=== PATIENT | male | born 1970 | race Caucasian/White ===

== ENCOUNTER 2017-10-22 20:03 | Emergency (ER) | payer MEDICARE, MEDICAID ==
[~2017-10-22] VITALS: Ht 177.8 cm; Wt 70.3 kg
[~2017-10-22 20:03] MED LIST: AMITRIPTYLINE H10 M3; BACTRIM DS TAB1 EACH PO; CARISOPRODOL 3350 MG PO; CHLORPROMAZINE100 MG PO; CHLORPROMAZINE50 M2; DEPAKOTE ER500 MG PO; DEPAKOTE500 MG; DEPAKOTE500 MG PO; FLEXERIL PO; HYDROCODONE-AP1 EAC6 PO; IBUPROFEN 600600 M1 PO; IBUPROFEN 800800 M1 PO; INVEGA3 MG PO; LIDODERM 5%1 PATC1 TRANSDERM; LORTAB 5 MG/5001 TA1; MEDROL DOSPAK21 TA1 PO; MOBIC15 MG PO; NAPROSYN375 MG PO; NAPROSYN500 MG PO; NORCO 10-325 T1 EACH; NORCO 10-325 T1 EACH PO; NORCO 5-325 TA1 EACH PO; NORTRIPTYLINE H10 M1; PAMELOR10 MG; PERCOCET 2.5-31 EACH; PREDNISONE; PROLIXIN; PROLIXIN PO; ROBAXIN 750 MG750 M1 PO; ROBAXIN500 MG PO; SEROQUEL200 MG; TRAZODONE HCL100 MG PO; ULTRAM 50MG TAB50 MG PO; VICODIN; VISTARIL50 MG PO; VOLTAREN GEL 1100 G2 TOP; ZYPREXA 10 MG T10 MG PO
[2017-10-22 20:05] VITALS: BP 127/82
== END 2017-10-22 21:42 | disposition home or self-care (01) ==
LOC: M.ERS 20:03
DX: S09.90XA Unspecified injury of head, initial encounter (principal); S19.9XXA Unspecified injury of neck, initial encounter; F17.210 Nicotine dependence, cigarettes, uncomplicated; F20.3 Undifferentiated schizophrenia; F30.9 Manic episode, unspecified; F20.9 Schizophrenia, unspecified; E78.00 Pure hypercholesterolemia, unspecified; Z88.5 Allergy status to narcotic agent; Z88.0 Allergy status to penicillin; Z88.8 Allergy status to other drugs, medicaments and biological substances; Y04.2XXA Assault by strike against or bumped into by another person, initial encounter; Y93.89 Activity, other specified; Y92.89 Other specified places as the place of occurrence of the external cause; Y99.8 Other external cause status

== ENCOUNTER 2017-10-30 08:16 | Emergency (ER) | payer MEDICARE, MEDICAID ==
[~2017-10-30] VITALS: Ht 182.9 cm; Wt 77.1 kg
[2017-10-30 08:24] VITALS: BP 130/67
== END 2017-10-30 08:45 | disposition home or self-care (01) ==
LOC: M.ERS 08:16
DX: R51 Headache (principal); G89.29 Other chronic pain; M54.9 Dorsalgia, unspecified; F20.9 Schizophrenia, unspecified; E78.00 Pure hypercholesterolemia, unspecified; M25.511 Pain in right shoulder; F17.210 Nicotine dependence, cigarettes, uncomplicated; Z88.5 Allergy status to narcotic agent; Z88.6 Allergy status to analgesic agent; Z88.0 Allergy status to penicillin; Z88.8 Allergy status to other drugs, medicaments and biological substances; Y04.0XXA Assault by unarmed brawl or fight, initial encounter; Y93.89 Activity, other specified; Y92.89 Other specified places as the place of occurrence of the external cause; Y99.8 Other external cause status

== ENCOUNTER 2017-11-13 18:28 | Emergency (ER) | payer MEDICARE, MEDICAID ==
[~2017-11-13] VITALS: Ht 177.8 cm; Wt 87.1 kg
[2017-11-13 19:13] VITALS: BP 118/76
== END 2017-11-13 19:14 | disposition home or self-care (01) ==
LOC: M.ERS 18:28
DX: G89.29 Other chronic pain (principal); M54.5 Low back pain; F20.9 Schizophrenia, unspecified; E78.00 Pure hypercholesterolemia, unspecified; M25.511 Pain in right shoulder; F17.210 Nicotine dependence, cigarettes, uncomplicated; Z88.5 Allergy status to narcotic agent; Z88.6 Allergy status to analgesic agent; Z88.0 Allergy status to penicillin; Z88.8 Allergy status to other drugs, medicaments and biological substances

== ENCOUNTER 2017-11-19 03:44 | Emergency (ER) | payer MEDICARE, MEDICAID ==
[~2017-11-19] VITALS: Ht 177.8 cm; Wt 83.0 kg
[2017-11-19] MEDS ORDERED: VISTARIL 25 MG25 M1 PO (03:54)
[2017-11-19 04:30] LABS: CREATININE 0.7 mg/dL (0.6-1.3); POTASSIUM 3.9 mmol/L (3.5-5.1)
[2017-11-19 04:34] LABS: ABSOLUTE BASOPHILS 0.1 thou/uL (0.0-0.2); ABSOLUTE EOSINOPHILS 0.1 thou/uL (0.0-0.7); ABSOLUTE LYMPHOCYTES 2.3 thou/uL (0.8-5.3); ABSOLUTE MONOCYTES 0.9 thou/uL (0.0-1.2); ABSOLUTE NEUTROPHILS 4.4 thou/uL (1.6-8.1); BASOPHILS 0.7 %; EOSINOPHILS 1.9 %; HEMATOCRIT 39.7 % (42.0-52.0); HEMOGLOBIN 13.6 gm/dL (14.0-18.0); MCH 32.1 pg (26.0-34.0); MCHC 34.2 g/dL (28.0-37.0); MCV 93.8 fL (80.0-100.0); MONOCYTES 11.2 %; MPV 7.7 fl. (7.2-11.1); NUCLEATED RBCS 0 /100WBC; PLATELET COUNT* 246 thou/uL (150-400); POLYS 56.2 %; RBC 4.23 mil/uL (4.50-6.00); RDW-CV 12.6 % (10.5-14.5); WBC 7.8 thou/uL (4.0-11.0)
[2017-11-19 04:35] LABS: ALBUMIN 3.5 g/dL (3.4-5.0); ALCOHOL < 10 mg/dL (<10); SALICYLATE 7.3 mg/dL (2.8-20.0); TOTAL BILIRUBIN 0.2 mg/dL (<0.1-1.0); TOTAL PROTEIN 6.8 g/dL (6.4-8.2)
[2017-11-19 04:39] LABS: ACETAMINOPHEN < 2 ug/mL (10-30)
[2017-11-19 06:30] LABS: URINE BILIRUBIN NEGATIVE (Negative); URINE BLOOD NEGATIVE (Negative); URINE CLARITY CLEAR; URINE COLOR YELLOW; URINE GLUCOSE-RANDOM NEGATIVE (Negative); URINE KETONES NEGATIVE (Negative); URINE LEUKOCYTES-REFLEX NEGATIVE (Negative); URINE NITRITE-REFLEX NEGATIVE (Negative); URINE PROTEIN NEGATIVE (Negative); URINE UROBILINOGEN 0.2 E.U./dl (0.2-1.0)
[2017-11-19 06:35] LABS: AMP/METHAMP Negative (Negative); BARBITURATES Negative (Negative); BENZODIAZEPINES Negative (Negative); COCAINE Negative (Negative); METHADONE Negative (Negative); OPIATES Negative (Negative); PCP Negative (Negative); THC POSITIVE (Negative)
[2017-11-19 10:55] VITALS: BP 101/56
== END 2017-11-19 11:05 | disposition home or self-care (01) ==
LOC: M.ERS 03:44
PROVIDERS: Emergency Medicine Emergency Medical Services
DX: F39 Unspecified mood [affective] disorder (principal); E78.00 Pure hypercholesterolemia, unspecified; F20.9 Schizophrenia, unspecified; F17.210 Nicotine dependence, cigarettes, uncomplicated; Z88.0 Allergy status to penicillin; Z88.5 Allergy status to narcotic agent; Z88.8 Allergy status to other drugs, medicaments and biological substances

== ENCOUNTER 2017-12-02 14:40 | Emergency (ER) | payer MEDICARE, MEDICAID ==
[~2017-12-02] VITALS: Ht 177.8 cm; Wt 69.4 kg
[~2017-12-02 14:40] MED LIST changes: +VISTARIL 25 MG25 M1 PO
[2017-12-02 15:20] VITALS: BP 119/77
== END 2017-12-02 15:38 | disposition home or self-care (01) ==
LOC: M.ERS 14:40
DX: G89.29 Other chronic pain (principal); F20.9 Schizophrenia, unspecified; F17.210 Nicotine dependence, cigarettes, uncomplicated; E78.00 Pure hypercholesterolemia, unspecified; Z88.5 Allergy status to narcotic agent; Z88.0 Allergy status to penicillin; Z88.8 Allergy status to other drugs, medicaments and biological substances

== ENCOUNTER 2017-12-07 15:17 | Emergency (ER) | payer MEDICARE, MEDICAID ==
[~2017-12-07] VITALS: Ht 177.8 cm; Wt 72.6 kg
[2017-12-07 15:23] VITALS: BP 125/80
[2017-12-07] MEDS ORDERED: MEDICINAL MARIJUANA (15:25)
[2017-12-07] MEDS ORDERED: NORCO 5-325 TA1 EACH PO (15:39)
== END 2017-12-07 15:56 | disposition home or self-care (01) ==
LOC: M.ERS 15:17
DX: S62.637A Displaced fracture of distal phalanx of left little finger, initial encounter for closed fracture (principal); G89.29 Other chronic pain; F20.9 Schizophrenia, unspecified; E78.00 Pure hypercholesterolemia, unspecified; M25.511 Pain in right shoulder; F17.210 Nicotine dependence, cigarettes, uncomplicated; Z88.5 Allergy status to narcotic agent; Z88.6 Allergy status to analgesic agent; Z88.0 Allergy status to penicillin; W23.0XXA Caught, crushed, jammed, or pinched between moving objects, initial encounter; Y93.89 Activity, other specified; Y92.89 Other specified places as the place of occurrence of the external cause; Y99.8 Other external cause status

== ENCOUNTER 2017-12-17 19:02 | Emergency (ER) | payer MEDICARE, MEDICAID ==
[~2017-12-17] VITALS: Ht 177.8 cm; Wt 69.4 kg
[~2017-12-17 19:02] MED LIST changes: +MEDICINAL MARIJUANA
[2017-12-17 20:29] VITALS: BP 113/76
== END 2017-12-17 20:41 | disposition home or self-care (01) ==
LOC: M.ERS 19:02
DX: S62.607D Fracture of unspecified phalanx of left little finger, subsequent encounter for fracture with routine healing (principal); S60.052A Contusion of left little finger without damage to nail, initial encounter; F17.210 Nicotine dependence, cigarettes, uncomplicated; G89.29 Other chronic pain; F12.11 Cannabis abuse, in remission; M54.9 Dorsalgia, unspecified; M51.36 Other intervertebral disc degeneration, lumbar region; F20.9 Schizophrenia, unspecified; F10.21 Alcohol dependence, in remission; E78.00 Pure hypercholesterolemia, unspecified; Z88.5 Allergy status to narcotic agent; Z88.0 Allergy status to penicillin; Z88.8 Allergy status to other drugs, medicaments and biological substances; W18.39XD Other fall on same level, subsequent encounter

== ENCOUNTER 2017-12-23 22:35 | Emergency (ER) | payer MEDICARE, MEDICAID ==
[~2017-12-23] VITALS: Ht 177.8 cm; Wt 69.4 kg
[2017-12-23 23:05] VITALS: BP 114/76
== END 2017-12-23 23:05 | disposition home or self-care (01) ==
LOC: M.ERS 22:35
DX: G89.29 Other chronic pain (principal); M25.551 Pain in right hip; F20.9 Schizophrenia, unspecified; F17.210 Nicotine dependence, cigarettes, uncomplicated; E78.00 Pure hypercholesterolemia, unspecified; Z88.5 Allergy status to narcotic agent; Z88.0 Allergy status to penicillin; Z88.8 Allergy status to other drugs, medicaments and biological substances

== ENCOUNTER 2017-12-27 18:13 | Emergency (ER) | payer MEDICARE, MEDICAID ==
[~2017-12-27] VITALS: Ht 182.9 cm; Wt 70.3 kg
[2017-12-27 18:18] VITALS: BP 148/91
== END 2017-12-27 18:29 | disposition home or self-care (01) ==
LOC: M.ERS 18:13
DX: G89.29 Other chronic pain (principal); M54.9 Dorsalgia, unspecified; M25.559 Pain in unspecified hip

== ENCOUNTER 2017-12-31 18:03 | Emergency (ER) | payer MEDICARE, MEDICAID ==
[~2017-12-31] VITALS: Ht 177.8 cm; Wt 69.4 kg
[2017-12-31 18:04] VITALS: BP 113/66
== END 2017-12-31 18:39 | disposition home or self-care (01) ==
LOC: M.ERS 18:03
DX: G89.29 Other chronic pain (principal); M25.551 Pain in right hip; M54.9 Dorsalgia, unspecified; M19.90 Unspecified osteoarthritis, unspecified site; F20.9 Schizophrenia, unspecified; E78.00 Pure hypercholesterolemia, unspecified; M25.511 Pain in right shoulder; F17.210 Nicotine dependence, cigarettes, uncomplicated; Z88.5 Allergy status to narcotic agent; Z88.6 Allergy status to analgesic agent; Z88.0 Allergy status to penicillin

== ENCOUNTER 2018-01-01 15:31 | Emergency (ER) | payer MEDICARE, MEDICAID ==
[~2018-01-01] VITALS: Ht 177.8 cm; Wt 69.4 kg
[2018-01-01 15:48] VITALS: BP 114/73
== END 2018-01-01 15:48 | disposition home or self-care (01) ==
LOC: M.ERS 15:31
DX: G89.29 Other chronic pain (principal); M54.9 Dorsalgia, unspecified; E78.00 Pure hypercholesterolemia, unspecified; M25.511 Pain in right shoulder; F17.210 Nicotine dependence, cigarettes, uncomplicated; Z88.6 Allergy status to analgesic agent; Z88.5 Allergy status to narcotic agent; Z88.0 Allergy status to penicillin

== ENCOUNTER 2018-01-07 16:29 | Emergency (ER) | payer MEDICARE, MEDICAID ==
[~2018-01-07] VITALS: Ht 177.8 cm; Wt 69.4 kg
[2018-01-07] MEDS ORDERED: HYDROCODONE-AP1 EAC6 PO (16:37)
[2018-01-07 17:26] VITALS: BP 123/61
== END 2018-01-07 17:27 | disposition home or self-care (01) ==
LOC: M.ERS 16:29
DX: G89.29 Other chronic pain (principal); M54.9 Dorsalgia, unspecified; M19.90 Unspecified osteoarthritis, unspecified site; F20.9 Schizophrenia, unspecified; E78.00 Pure hypercholesterolemia, unspecified; M25.511 Pain in right shoulder; F17.210 Nicotine dependence, cigarettes, uncomplicated; Z88.5 Allergy status to narcotic agent; Z88.6 Allergy status to analgesic agent; Z88.0 Allergy status to penicillin

== ENCOUNTER 2018-01-09 21:23 | Emergency (ER) | payer MEDICARE, MEDICAID ==
[~2018-01-09] VITALS: Ht 177.8 cm; Wt 69.4 kg
[2018-01-09 21:59] VITALS: BP 122/85
== END 2018-01-09 21:54 | disposition home or self-care (01) ==
LOC: M.ERS 21:23
DX: G89.29 Other chronic pain (principal); R51 Headache

== ENCOUNTER 2018-01-16 14:04 | Emergency (ER) | payer MEDICARE, MEDICAID ==
[~2018-01-16] VITALS: Ht 177.8 cm; Wt 83.0 kg
[2018-01-16 14:35] VITALS: BP 115/69
== END 2018-01-16 14:47 | disposition home or self-care (01) ==
LOC: M.ERS 14:04
DX: G89.29 Other chronic pain (principal); R51 Headache; E78.00 Pure hypercholesterolemia, unspecified; M25.511 Pain in right shoulder; Z88.5 Allergy status to narcotic agent; Z88.6 Allergy status to analgesic agent; Z88.0 Allergy status to penicillin; Z88.8 Allergy status to other drugs, medicaments and biological substances; Z87.891 Personal history of nicotine dependence

== ENCOUNTER 2018-01-27 18:33 | Emergency (ER) | payer MEDICARE, MEDICAID ==
[~2018-01-27] VITALS: Ht 177.8 cm; Wt 69.4 kg
[2018-01-27 18:35] VITALS: BP 129/87
== END 2018-01-27 19:04 | disposition home or self-care (01) ==
LOC: M.ERS 18:33
DX: G89.29 Other chronic pain (principal); M25.561 Pain in right knee; E78.00 Pure hypercholesterolemia, unspecified; F20.9 Schizophrenia, unspecified; F17.210 Nicotine dependence, cigarettes, uncomplicated; Z88.5 Allergy status to narcotic agent; Z88.0 Allergy status to penicillin; Z88.8 Allergy status to other drugs, medicaments and biological substances

== ENCOUNTER 2018-01-31 15:15 | Emergency (ER) | payer MEDICARE, MEDICAID ==
[~2018-01-31] VITALS: Ht 177.8 cm; Wt 69.8 kg
[2018-01-31 15:36] VITALS: BP 127/83
== END 2018-01-31 15:37 | disposition home or self-care (01) ==
LOC: M.ERS 15:15
DX: G89.29 Other chronic pain (principal); R51 Headache; M54.9 Dorsalgia, unspecified; M25.511 Pain in right shoulder; E78.00 Pure hypercholesterolemia, unspecified; F17.210 Nicotine dependence, cigarettes, uncomplicated; F20.9 Schizophrenia, unspecified; Z88.5 Allergy status to narcotic agent; Z88.1 Allergy status to other antibiotic agents; Z88.0 Allergy status to penicillin; Z88.8 Allergy status to other drugs, medicaments and biological substances

== ENCOUNTER 2018-02-07 10:08 | Emergency (ER) | payer MEDICARE, MEDICAID ==
[~2018-02-07] VITALS: Ht 177.8 cm; Wt 69.8 kg
[2018-02-07 11:49] VITALS: BP 132/99
== END 2018-02-07 11:51 | disposition home or self-care (01) ==
LOC: M.ERS 10:08
DX: G89.29 Other chronic pain (principal); M25.561 Pain in right knee; M54.9 Dorsalgia, unspecified; M25.519 Pain in unspecified shoulder; E78.00 Pure hypercholesterolemia, unspecified; Z88.5 Allergy status to narcotic agent; Z88.0 Allergy status to penicillin; Z88.8 Allergy status to other drugs, medicaments and biological substances; F17.210 Nicotine dependence, cigarettes, uncomplicated

== ENCOUNTER 2018-02-10 14:42 | Emergency (ER) | payer MEDICARE, MEDICAID ==
[~2018-02-10] VITALS: Ht 177.8 cm; Wt 70.3 kg
[2018-02-10 15:05] VITALS: BP 122/67
== END 2018-02-10 15:05 | disposition home or self-care (01) ==
LOC: M.ERS 14:42
DX: G89.29 Other chronic pain (principal); M25.511 Pain in right shoulder; M54.9 Dorsalgia, unspecified; E78.00 Pure hypercholesterolemia, unspecified; F20.9 Schizophrenia, unspecified; F17.210 Nicotine dependence, cigarettes, uncomplicated; Z88.5 Allergy status to narcotic agent; Z88.0 Allergy status to penicillin; Z88.8 Allergy status to other drugs, medicaments and biological substances

== ENCOUNTER 2018-02-11 18:43 | Emergency (ER) | payer MEDICARE, MEDICAID ==
[~2018-02-11] VITALS: Ht 182.9 cm; Wt 79.4 kg
[2018-02-11 19:10] VITALS: BP 119/71
== END 2018-02-11 19:12 | disposition home or self-care (01) ==
LOC: M.ERS 18:43
DX: G89.29 Other chronic pain (principal); M25.521 Pain in right elbow; M54.9 Dorsalgia, unspecified; E78.00 Pure hypercholesterolemia, unspecified; F17.210 Nicotine dependence, cigarettes, uncomplicated; Z88.5 Allergy status to narcotic agent; Z88.6 Allergy status to analgesic agent; Z88.0 Allergy status to penicillin; Z88.8 Allergy status to other drugs, medicaments and biological substances

== ENCOUNTER 2018-02-14 20:06 | Emergency (ER) | payer MEDICARE, MEDICAID ==
[~2018-02-14] VITALS: Ht 180.3 cm; Wt 83.9 kg
[2018-02-14] MEDS ORDERED: LIDODERM1 EACH TRANSDERM (20:18)
[2018-02-14 20:25] VITALS: BP 145/68
== END 2018-02-14 20:27 | disposition home or self-care (01) ==
LOC: M.ERS 20:06
DX: G89.29 Other chronic pain (principal); M54.2 Cervicalgia; M54.9 Dorsalgia, unspecified; M79.604 Pain in right leg; F20.9 Schizophrenia, unspecified; M19.90 Unspecified osteoarthritis, unspecified site; E78.00 Pure hypercholesterolemia, unspecified; M25.511 Pain in right shoulder; F17.210 Nicotine dependence, cigarettes, uncomplicated; Z88.5 Allergy status to narcotic agent; Z88.6 Allergy status to analgesic agent; Z88.0 Allergy status to penicillin; Z88.8 Allergy status to other drugs, medicaments and biological substances

== ENCOUNTER 2018-02-17 20:30 | Emergency (ER) | payer MEDICARE, MEDICAID ==
[~2018-02-17] VITALS: Ht 177.8 cm; Wt 73.5 kg
[~2018-02-17 20:30] MED LIST changes: +LIDODERM1 EACH TRANSDERM
[2018-02-17 21:24] VITALS: BP 104/63
== END 2018-02-17 21:27 | disposition home or self-care (01) ==
LOC: M.ERS 20:30
DX: G89.29 Other chronic pain (principal); M25.561 Pain in right knee; M26.609 Unspecified temporomandibular joint disorder, unspecified side; M25.511 Pain in right shoulder; M54.9 Dorsalgia, unspecified; E78.00 Pure hypercholesterolemia, unspecified; F20.9 Schizophrenia, unspecified; F17.210 Nicotine dependence, cigarettes, uncomplicated; Z88.5 Allergy status to narcotic agent; Z88.0 Allergy status to penicillin; Z88.6 Allergy status to analgesic agent; Z88.8 Allergy status to other drugs, medicaments and biological substances

== ENCOUNTER 2018-02-19 14:22 | Emergency (ER) | payer MEDICARE, MEDICAID ==
[~2018-02-19] VITALS: Ht 177.8 cm; Wt 69.8 kg
[2018-02-19 14:24] VITALS: BP 122/68
== END 2018-02-19 14:43 | disposition home or self-care (01) ==
LOC: M.ERS 14:22
DX: G89.29 Other chronic pain (principal); M25.561 Pain in right knee; M25.511 Pain in right shoulder; M54.9 Dorsalgia, unspecified; E78.00 Pure hypercholesterolemia, unspecified; F20.9 Schizophrenia, unspecified; F17.210 Nicotine dependence, cigarettes, uncomplicated; Z88.5 Allergy status to narcotic agent; Z88.0 Allergy status to penicillin; Z88.6 Allergy status to analgesic agent; Z88.8 Allergy status to other drugs, medicaments and biological substances

== ENCOUNTER 2018-02-21 18:12 | Emergency (ER) | payer MEDICARE, MEDICAID ==
[~2018-02-21] VITALS: Ht 177.8 cm; Wt 74.8 kg
[2018-02-21 18:42] VITALS: BP 126/84
[2018-02-21] MEDS ORDERED: AFLEXERYL-LC 41 EACH TOP (18:48)
[2018-02-21] MEDS ORDERED: LIDODERM1 EACH TOP (18:49)
== END 2018-02-21 18:48 | disposition home or self-care (01) ==
LOC: M.ERS 18:12
DX: G89.29 Other chronic pain (principal); M54.9 Dorsalgia, unspecified; M19.90 Unspecified osteoarthritis, unspecified site; F20.9 Schizophrenia, unspecified; E78.00 Pure hypercholesterolemia, unspecified; M25.511 Pain in right shoulder; F17.210 Nicotine dependence, cigarettes, uncomplicated; Z88.5 Allergy status to narcotic agent; Z88.6 Allergy status to analgesic agent; Z88.0 Allergy status to penicillin; Z88.8 Allergy status to other drugs, medicaments and biological substances

== ENCOUNTER 2018-03-15 19:45 | Emergency (ER) | payer MEDICARE, MEDICAID ==
[~2018-03-15] VITALS: Ht 177.8 cm; Wt 70.3 kg
[~2018-03-15 19:45] MED LIST changes: +AFLEXERYL-LC 41 EACH TOP; +LIDODERM1 EACH TOP
[2018-03-15] MEDS ORDERED: NORCO 10-325 T1 EACH (19:52)
[2018-03-15 21:47] VITALS: BP 104/64
== END 2018-03-15 21:48 | disposition home or self-care (01) ==
LOC: M.ERS 19:45
DX: M54.2 Cervicalgia (principal); M54.9 Dorsalgia, unspecified; G89.29 Other chronic pain; F20.9 Schizophrenia, unspecified; E78.00 Pure hypercholesterolemia, unspecified; M25.511 Pain in right shoulder; F17.210 Nicotine dependence, cigarettes, uncomplicated; Z88.5 Allergy status to narcotic agent; Z88.6 Allergy status to analgesic agent; Z88.0 Allergy status to penicillin; Z88.8 Allergy status to other drugs, medicaments and biological substances

== ENCOUNTER 2018-03-22 17:36 | Emergency (ER) | payer MEDICARE, MEDICAID ==
[~2018-03-22] VITALS: Ht 177.8 cm; Wt 71.2 kg
[2018-03-22 17:37] VITALS: BP 117/75
[2018-03-22] MEDS ORDERED: NORCO 10-325 T1 EACH PO (17:41)
== END 2018-03-22 17:59 | disposition home or self-care (01) ==
LOC: M.ERS 17:36
DX: G89.29 Other chronic pain (principal); M25.511 Pain in right shoulder; M54.6 Pain in thoracic spine; E78.00 Pure hypercholesterolemia, unspecified; F20.9 Schizophrenia, unspecified; Z88.5 Allergy status to narcotic agent; Z88.6 Allergy status to analgesic agent; Z88.0 Allergy status to penicillin; Z88.8 Allergy status to other drugs, medicaments and biological substances; F17.210 Nicotine dependence, cigarettes, uncomplicated

== ENCOUNTER 2018-04-11 16:57 | Emergency (ER) | payer MEDICARE, MEDICAID ==
[~2018-04-11] VITALS: Ht 177.8 cm; Wt 69.8 kg
[2018-04-11 17:04] VITALS: BP 131/83
[2018-04-11] MEDS ORDERED: PATANOL5 ML OPHTHALMIC (17:22)
== END 2018-04-11 17:29 | disposition home or self-care (01) ==
LOC: M.ERS 16:57
DX: H10.11 Acute atopic conjunctivitis, right eye (principal); G89.29 Other chronic pain; M54.9 Dorsalgia, unspecified; M19.90 Unspecified osteoarthritis, unspecified site; F20.9 Schizophrenia, unspecified; E78.00 Pure hypercholesterolemia, unspecified; M25.511 Pain in right shoulder; F17.210 Nicotine dependence, cigarettes, uncomplicated; Z88.5 Allergy status to narcotic agent; Z88.6 Allergy status to analgesic agent; Z88.0 Allergy status to penicillin; Z88.8 Allergy status to other drugs, medicaments and biological substances

== ENCOUNTER 2018-04-17 21:24 | Emergency (ER) | payer MEDICARE, MEDICAID ==
[~2018-04-17] VITALS: Ht 182.9 cm; Wt 73.0 kg
[~2018-04-17 21:24] MED LIST changes: +PATANOL5 ML OPHTHALMIC
[2018-04-17] MEDS ORDERED: ZANAFLEX4 MG PO (21:35)
[2018-04-17] MEDS ORDERED: MEDROLDOSEPACK PO (21:35)
[2018-04-17 21:46] VITALS: BP 137/74
== END 2018-04-17 21:47 | disposition home or self-care (01) ==
LOC: M.ERS 21:24
DX: G89.29 Other chronic pain (principal); M54.9 Dorsalgia, unspecified; M25.511 Pain in right shoulder; E78.00 Pure hypercholesterolemia, unspecified; F17.210 Nicotine dependence, cigarettes, uncomplicated; Z88.0 Allergy status to penicillin; Z88.6 Allergy status to analgesic agent; Z88.8 Allergy status to other drugs, medicaments and biological substances; Z88.5 Allergy status to narcotic agent

== ENCOUNTER 2018-04-30 19:15 | Emergency (ER) | payer MEDICARE, MEDICAID ==
[~2018-04-30] VITALS: Ht 182.9 cm; Wt 69.8 kg
[~2018-04-30 19:15] MED LIST changes: +MEDROLDOSEPACK PO; +ZANAFLEX4 MG PO
[2018-04-30 20:19] VITALS: BP 129/66
== END 2018-04-30 20:20 | disposition home or self-care (01) ==
LOC: M.ERS 19:15
DX: G89.29 Other chronic pain (principal); M54.2 Cervicalgia; M54.9 Dorsalgia, unspecified; M25.511 Pain in right shoulder; F20.9 Schizophrenia, unspecified; E78.00 Pure hypercholesterolemia, unspecified; F17.210 Nicotine dependence, cigarettes, uncomplicated; Z88.5 Allergy status to narcotic agent; Z88.6 Allergy status to analgesic agent; Z88.0 Allergy status to penicillin; Z88.8 Allergy status to other drugs, medicaments and biological substances

== ENCOUNTER 2018-05-18 14:17 | Emergency (ER) | payer MEDICARE, MEDICAID ==
[~2018-05-18] VITALS: Ht 182.9 cm; Wt 68.0 kg
[2018-05-18 14:28] VITALS: BP 105/77
[2018-05-18] MEDS ORDERED: VISTARIL50 MG PO (14:30)
[2018-05-18] MEDS ORDERED: ZYPREXA10 MG PO (14:30)
[2018-05-18] MEDS ORDERED: NORCO 10-325 T1 EACH PO (14:31)
== END 2018-05-18 14:39 | disposition home or self-care (01) ==
LOC: M.ERS 14:17
DX: Z53.21 Procedure and treatment not carried out due to patient leaving prior to being seen by health care provider (principal)

== ENCOUNTER 2018-05-24 23:06 | Emergency (ER) | payer MEDICARE, MEDICAID ==
[~2018-05-24] VITALS: Ht 188 cm; Wt 81.7 kg
[~2018-05-24 23:06] MED LIST changes: +ZYPREXA10 MG PO
[2018-05-24 23:41] LABS: AMP/METHAMP Negative (Negative); BARBITURATES Negative (Negative); BENZODIAZEPINES Negative (Negative); COCAINE Negative (Negative); METHADONE Negative (Negative); OPIATES Negative (Negative); PCP Negative (Negative); THC POSITIVE (Negative)
[2018-05-25 00:20] VITALS: BP 122/78
== END 2018-05-25 00:20 | disposition home or self-care (01) ==
LOC: M.ERS 23:06
PROVIDERS: Emergency Medicine
DX: G89.29 Other chronic pain (principal); R51 Headache; M25.511 Pain in right shoulder; M54.9 Dorsalgia, unspecified; E78.00 Pure hypercholesterolemia, unspecified; F20.9 Schizophrenia, unspecified; F12.90 Cannabis use, unspecified, uncomplicated; F17.210 Nicotine dependence, cigarettes, uncomplicated; Z88.5 Allergy status to narcotic agent; Z88.6 Allergy status to analgesic agent; Z88.0 Allergy status to penicillin; Z88.8 Allergy status to other drugs, medicaments and biological substances

== ENCOUNTER 2018-05-26 17:39 | Emergency (ER) | payer MEDICARE, MEDICAID ==
[~2018-05-26] VITALS: Ht 177.8 cm; Wt 69.8 kg
[2018-05-26 18:05] VITALS: BP 114/81
== END 2018-05-26 18:06 | disposition home or self-care (01) ==
LOC: M.ERS 17:39
DX: G89.29 Other chronic pain (principal); M25.551 Pain in right hip; M54.9 Dorsalgia, unspecified; F20.9 Schizophrenia, unspecified; E78.00 Pure hypercholesterolemia, unspecified; M25.511 Pain in right shoulder; F17.210 Nicotine dependence, cigarettes, uncomplicated; Z88.5 Allergy status to narcotic agent; Z88.6 Allergy status to analgesic agent; Z88.0 Allergy status to penicillin; Z88.8 Allergy status to other drugs, medicaments and biological substances

== ENCOUNTER 2018-05-27 13:16 | Emergency (ER) | payer MEDICARE, MEDICAID ==
[~2018-05-27] VITALS: Ht 177.8 cm; Wt 69.8 kg
[2018-05-27 13:18] VITALS: BP 118/73
== END 2018-05-27 13:39 | disposition home or self-care (01) ==
LOC: M.ERS 13:16
DX: G89.29 Other chronic pain (principal); M25.551 Pain in right hip; M25.511 Pain in right shoulder; M54.9 Dorsalgia, unspecified; E78.00 Pure hypercholesterolemia, unspecified; F20.9 Schizophrenia, unspecified; F17.210 Nicotine dependence, cigarettes, uncomplicated; Z88.5 Allergy status to narcotic agent; Z88.0 Allergy status to penicillin; Z88.6 Allergy status to analgesic agent; Z88.8 Allergy status to other drugs, medicaments and biological substances

== ENCOUNTER 2018-05-28 23:50 | Emergency (ER) | payer MEDICARE, MEDICAID ==
[~2018-05-28] VITALS: Ht 177.8 cm; Wt 74.8 kg
[2018-05-29 00:30] LABS: HEMATOCRIT 42.2 % (42.0-52.0); HEMOGLOBIN 14.8 gm/dL (14.0-18.0); MCH 32.2 pg (26.0-34.0); MCV 92.1 fL (80.0-100.0); MPV 7.5 fl. (7.2-11.1); RBC 4.58 mil/uL (4.50-6.00); RDW-CV 13.4 % (10.5-14.5); WBC 9.3 thou/uL (4.0-11.0)
[2018-05-29 00:36] LABS: CALCIUM 9.8 mg/dL (8.5-10.1); CREATININE 0.8 mg/dL (0.6-1.3); POTASSIUM 3.5 mmol/L (3.5-5.1)
[2018-05-29 00:44] LABS: URINE BILIRUBIN NEGATIVE (Negative); URINE BLOOD NEGATIVE (Negative); URINE CLARITY CLEAR; URINE COLOR YELLOW; URINE GLUCOSE-RANDOM NEGATIVE (Negative); URINE KETONES NEGATIVE (Negative); URINE LEUKOCYTES-REFLEX NEGATIVE (Negative); URINE NITRITE-REFLEX NEGATIVE (Negative); URINE PROTEIN NEGATIVE (Negative); URINE SPECIFIC GRAVITY <= 1.005 (1.005-1.030); URINE UROBILINOGEN 0.2 E.U./dl (0.2-1.0)
[2018-05-29 00:52] LABS: AMP/METHAMP Negative (Negative); BARBITURATES Negative (Negative); BENZODIAZEPINES Negative (Negative); COCAINE Negative (Negative); METHADONE Negative (Negative); OPIATES Negative (Negative); PCP Negative (Negative); THC POSITIVE (Negative)
[2018-05-29 01:15] VITALS: BP 138/78
== END 2018-05-29 01:16 | disposition home or self-care (01) ==
LOC: M.ERS 23:50
PROVIDERS: Emergency Medicine Emergency Medical Services
DX: G89.29 Other chronic pain (principal); M54.2 Cervicalgia; M62.838 Other muscle spasm; M54.9 Dorsalgia, unspecified; M25.511 Pain in right shoulder; E78.00 Pure hypercholesterolemia, unspecified; F20.9 Schizophrenia, unspecified; F17.210 Nicotine dependence, cigarettes, uncomplicated; Z88.6 Allergy status to analgesic agent; Z88.8 Allergy status to other drugs, medicaments and biological substances; Z88.5 Allergy status to narcotic agent; Z88.0 Allergy status to penicillin

== ENCOUNTER 2018-05-30 14:01 | Emergency (ER) | payer MEDICARE, MEDICAID ==
[~2018-05-30] VITALS: Ht 182.9 cm; Wt 68.0 kg
[2018-05-30 15:12] VITALS: BP 113/87
== END 2018-05-30 15:14 | disposition home or self-care (01) ==
LOC: M.ERS 14:01
DX: G89.29 Other chronic pain (principal); R07.81 Pleurodynia; M79.642 Pain in left hand; M54.9 Dorsalgia, unspecified; E78.00 Pure hypercholesterolemia, unspecified; M25.511 Pain in right shoulder; F20.9 Schizophrenia, unspecified; F17.210 Nicotine dependence, cigarettes, uncomplicated; Z88.5 Allergy status to narcotic agent; Z88.6 Allergy status to analgesic agent; Z88.0 Allergy status to penicillin; Z88.8 Allergy status to other drugs, medicaments and biological substances

== ENCOUNTER 2018-06-10 02:39 | Emergency (ER) | payer MEDICARE, MEDICAID ==
[~2018-06-10] VITALS: Ht 177.8 cm; Wt 69.8 kg
[2018-06-10] MEDS ORDERED: LIORESAL 10 MG10 MG (02:45)
[2018-06-10 03:45] VITALS: BP 107/72
== END 2018-06-10 03:45 | disposition home or self-care (01) ==
LOC: M.ERS 02:39
DX: G89.29 Other chronic pain (principal); M25.542 Pain in joints of left hand; R07.81 Pleurodynia; M54.9 Dorsalgia, unspecified; E78.00 Pure hypercholesterolemia, unspecified; M25.511 Pain in right shoulder; F20.9 Schizophrenia, unspecified; F17.210 Nicotine dependence, cigarettes, uncomplicated; Z88.5 Allergy status to narcotic agent; Z88.6 Allergy status to analgesic agent; Z88.0 Allergy status to penicillin; Z88.8 Allergy status to other drugs, medicaments and biological substances

== ENCOUNTER 2018-06-12 21:34 | Emergency (ER) | payer MEDICARE, MEDICAID ==
[~2018-06-12] VITALS: Ht 177.8 cm; Wt 69.8 kg
[~2018-06-12 21:34] MED LIST changes: +LIORESAL 10 MG10 MG
[2018-06-12 23:22] VITALS: BP 122/77
== END 2018-06-12 23:29 | disposition home or self-care (01) ==
LOC: M.ERS 21:34
DX: G89.29 Other chronic pain (principal); M54.2 Cervicalgia; R51 Headache; M79.1 Myalgia; F20.9 Schizophrenia, unspecified; E78.00 Pure hypercholesterolemia, unspecified; M25.511 Pain in right shoulder; F17.210 Nicotine dependence, cigarettes, uncomplicated; Z88.5 Allergy status to narcotic agent; Z88.6 Allergy status to analgesic agent; Z88.0 Allergy status to penicillin; Z88.8 Allergy status to other drugs, medicaments and biological substances

== ENCOUNTER 2018-06-15 18:30 | Emergency (ER) | payer MEDICARE, MEDICAID ==
[~2018-06-15] VITALS: Ht 177.8 cm; Wt 60.8 kg
[2018-06-15 19:13] LABS: ABSOLUTE BASOPHILS 0.1 thou/uL (0.0-0.2); ABSOLUTE LYMPHOCYTES 1.6 thou/uL (0.8-5.3); ABSOLUTE MONOCYTES 0.7 thou/uL (0.0-1.2); ABSOLUTE NEUTROPHILS 3.9 thou/uL (1.6-8.1); EOSINOPHILS 0.8 %; HEMATOCRIT 41.4 % (42.0-52.0); HEMOGLOBIN 14.2 gm/dL (14.0-18.0); LYMPHOCYTES 25.5 %; MCH 31.5 pg (26.0-34.0); MCHC 34.2 g/dL (28.0-37.0); MCV 91.9 fL (80.0-100.0); MONOCYTES 10.6 %; MPV 7.3 fl. (7.2-11.1); NUCLEATED RBCS 0 /100WBC; PLATELET COUNT* 253 thou/uL (150-400); POLYS 62.1 %; RBC 4.51 mil/uL (4.50-6.00); WBC 6.2 thou/uL (4.0-11.0)
[2018-06-15 19:18] LABS: CALCIUM 8.6 mg/dL (8.5-10.1); CREATININE 0.9 mg/dL (0.6-1.3); POTASSIUM 3.6 mmol/L (3.5-5.1)
[2018-06-15 19:23] LABS: ALBUMIN 3.4 g/dL (3.4-5.0); TOTAL BILIRUBIN 0.2 mg/dL (<0.1-1.0); TOTAL PROTEIN 7.3 g/dL (6.4-8.2)
[2018-06-15 19:30] LABS: ALCOHOL < 10 mg/dL (<10); SALICYLATE 5.7 mg/dL (2.8-20.0)
[2018-06-15 19:31] LABS: ACETAMINOPHEN < 2 ug/mL (10-30)
[2018-06-15 22:08] VITALS: BP 117/66
== END 2018-06-15 22:10 | disposition home or self-care (01) ==
LOC: M.ERS 18:30
PROVIDERS: Emergency Medicine Emergency Medical Services
DX: F29 Unspecified psychosis not due to a substance or known physiological condition (principal); F32.9 Major depressive disorder, single episode, unspecified; R45.851 Suicidal ideations; E78.00 Pure hypercholesterolemia, unspecified; F20.9 Schizophrenia, unspecified; G89.29 Other chronic pain; M25.511 Pain in right shoulder; F17.210 Nicotine dependence, cigarettes, uncomplicated; Z88.8 Allergy status to other drugs, medicaments and biological substances; Z88.5 Allergy status to narcotic agent; Z88.6 Allergy status to analgesic agent; Z88.0 Allergy status to penicillin

== ENCOUNTER 2018-06-29 15:18 | Emergency (ER) | payer MEDICARE, MEDICAID ==
[~2018-06-29] VITALS: Ht 172.7 cm; Wt 68.0 kg
[2018-06-29 16:11] VITALS: BP 134/77
== END 2018-06-29 16:11 | disposition home or self-care (01) ==
LOC: M.ERS 15:18
DX: M25.511 Pain in right shoulder (principal); G89.29 Other chronic pain; M54.9 Dorsalgia, unspecified; E78.00 Pure hypercholesterolemia, unspecified; F20.9 Schizophrenia, unspecified; F17.210 Nicotine dependence, cigarettes, uncomplicated; Z88.5 Allergy status to narcotic agent; Z88.6 Allergy status to analgesic agent; Z88.0 Allergy status to penicillin; Z88.8 Allergy status to other drugs, medicaments and biological substances

== ENCOUNTER 2018-09-12 16:38 | Emergency (ER) | payer MEDICARE, MEDICAID ==
[~2018-09-12] VITALS: Ht 177.8 cm; Wt 70.8 kg
[2018-09-12 16:46] VITALS: BP 125/80
[2018-09-12] MEDS ORDERED: CLONAZEPAM 0.50.5 M1 PO (16:52)
== END 2018-09-12 17:08 | disposition home or self-care (01) ==
LOC: M.ERS 16:38
DX: G89.29 Other chronic pain (principal); R68.82 Decreased libido; M54.9 Dorsalgia, unspecified; F20.9 Schizophrenia, unspecified; E78.00 Pure hypercholesterolemia, unspecified; M25.511 Pain in right shoulder; F17.210 Nicotine dependence, cigarettes, uncomplicated; Z88.0 Allergy status to penicillin; Z88.6 Allergy status to analgesic agent; Z88.5 Allergy status to narcotic agent; Z88.8 Allergy status to other drugs, medicaments and biological substances

== ENCOUNTER 2018-09-15 17:00 | Emergency (ER) | payer MEDICARE, MEDICAID ==
[~2018-09-15] VITALS: Ht 177.8 cm; Wt 70.3 kg
[~2018-09-15 17:00] MED LIST changes: +CLONAZEPAM 0.50.5 M1 PO
[2018-09-15 18:00] VITALS: BP 120/40
== END 2018-09-15 18:00 | disposition home or self-care (01) ==
LOC: M.ERS 17:00
DX: R51 Headache (principal); M62.838 Other muscle spasm; E78.00 Pure hypercholesterolemia, unspecified; G89.29 Other chronic pain; M54.9 Dorsalgia, unspecified; M25.511 Pain in right shoulder; F20.9 Schizophrenia, unspecified; F17.210 Nicotine dependence, cigarettes, uncomplicated; Z88.5 Allergy status to narcotic agent; Z88.6 Allergy status to analgesic agent; Z88.0 Allergy status to penicillin; Z88.8 Allergy status to other drugs, medicaments and biological substances

== ENCOUNTER 2018-09-16 15:47 | Emergency (ER) | payer MEDICARE, MEDICAID ==
[~2018-09-16] VITALS: Ht 177.8 cm; Wt 71.2 kg
[2018-09-16 17:18] VITALS: BP 148/79
== END 2018-09-16 17:19 | disposition home or self-care (01) ==
LOC: M.ERS 15:47
DX: R51 Headache (principal); G89.29 Other chronic pain; M25.511 Pain in right shoulder; F20.9 Schizophrenia, unspecified; E78.00 Pure hypercholesterolemia, unspecified; F17.210 Nicotine dependence, cigarettes, uncomplicated; Z88.5 Allergy status to narcotic agent; Z88.0 Allergy status to penicillin; Z88.6 Allergy status to analgesic agent; Z88.8 Allergy status to other drugs, medicaments and biological substances

== ENCOUNTER 2018-09-21 13:47 | Emergency (ER) | payer MEDICARE, MEDICAID ==
[~2018-09-21] VITALS: Ht 177.8 cm; Wt 71.2 kg
[2018-09-21] MEDS ORDERED: AMITRIPTYLINE H25 M3 PO (13:59)
[2018-09-21 14:19] LABS: ABSOLUTE BASOPHILS 0.1 thou/uL (0.0-0.2); ABSOLUTE EOSINOPHILS 0.1 thou/uL (0.0-0.7); ABSOLUTE MONOCYTES 0.9 thou/uL (0.0-1.2); BASOPHILS 0.6 %; EOSINOPHILS 1.4 %; HEMATOCRIT 41.7 % (42.0-52.0); HEMOGLOBIN 14.3 gm/dL (14.0-18.0); LYMPHOCYTES 25.1 %; MCH 32.5 pg (26.0-34.0); MCHC 34.2 g/dL (28.0-37.0); MONOCYTES 11.1 %; MPV 7.6 fl. (7.2-11.1); NUCLEATED RBCS 0 /100WBC; PLATELET COUNT* 246 thou/uL (150-400); POLYS 61.8 %; RBC 4.39 mil/uL (4.50-6.00); RDW-CV 13.3 % (10.5-14.5); WBC 8.1 thou/uL (4.0-11.0)
[2018-09-21 14:29] LABS: CALCIUM 8.8 mg/dL (8.5-10.1); CREATININE 0.7 mg/dL (0.6-1.3); POTASSIUM 3.4 mmol/L (3.5-5.1)
[2018-09-21 14:38] LABS: ALBUMIN 3.5 g/dL (3.4-5.0); TOTAL BILIRUBIN 0.2 mg/dL (<0.1-1.0); TOTAL PROTEIN 7.2 g/dL (6.4-8.2)
[2018-09-21] MEDS ORDERED: BENTYL 20 MG TA20 M1 PO (15:57)
[2018-09-21] MEDS ORDERED: ONDANSETRON HCL4 M2 PO (15:57)
[2018-09-21 16:05] VITALS: BP 122/76
== END 2018-09-21 16:05 | disposition home or self-care (01) ==
LOC: M.ERS 13:47
PROVIDERS: Nurse Practitioner Family
DX: R10.32 Left lower quadrant pain (principal); R10.33 Periumbilical pain; R11.2 Nausea with vomiting, unspecified; G89.29 Other chronic pain; M54.9 Dorsalgia, unspecified; M25.511 Pain in right shoulder; F20.9 Schizophrenia, unspecified; E78.00 Pure hypercholesterolemia, unspecified; Z88.5 Allergy status to narcotic agent; F17.210 Nicotine dependence, cigarettes, uncomplicated; Z88.6 Allergy status to analgesic agent; Z88.0 Allergy status to penicillin; Z88.8 Allergy status to other drugs, medicaments and biological substances

== ENCOUNTER 2018-09-30 11:57 | Emergency (ER) | payer MEDICARE, MEDICAID ==
[~2018-09-30] VITALS: Ht 180.3 cm; Wt 74.8 kg
[~2018-09-30 11:57] MED LIST changes: +AMITRIPTYLINE H25 M3 PO; +BENTYL 20 MG TA20 M1 PO; +ONDANSETRON HCL4 M2 PO
[2018-09-30 12:19] VITALS: BP 112/78
== END 2018-09-30 12:39 | disposition home or self-care (01) ==
LOC: M.ERS 11:57
DX: G89.29 Other chronic pain (principal); M25.551 Pain in right hip; M25.552 Pain in left hip; M54.9 Dorsalgia, unspecified; M25.511 Pain in right shoulder; E78.00 Pure hypercholesterolemia, unspecified; F17.210 Nicotine dependence, cigarettes, uncomplicated; Z88.5 Allergy status to narcotic agent; Z88.0 Allergy status to penicillin; Z88.6 Allergy status to analgesic agent; Z88.8 Allergy status to other drugs, medicaments and biological substances

== ENCOUNTER 2018-10-02 13:40 | Emergency (ER) | payer MEDICARE, MEDICAID ==
[~2018-10-02] VITALS: Ht 177.8 cm; Wt 71.2 kg
[2018-10-02] MEDS ORDERED: PEPCID20 MG PO (14:19)
[2018-10-02] MEDS ORDERED: CARAFATE 1 GM TA1 GM PO (14:19)
[2018-10-02 14:27] VITALS: BP 122/79
== END 2018-10-02 14:28 | disposition home or self-care (01) ==
LOC: M.ERS 13:40
DX: G89.29 Other chronic pain (principal); Z76.0 Encounter for issue of repeat prescription; R07.89 Other chest pain; M54.9 Dorsalgia, unspecified; F20.9 Schizophrenia, unspecified; E78.00 Pure hypercholesterolemia, unspecified; M25.511 Pain in right shoulder; F17.210 Nicotine dependence, cigarettes, uncomplicated; Z88.5 Allergy status to narcotic agent; Z88.6 Allergy status to analgesic agent; Z88.0 Allergy status to penicillin; Z88.8 Allergy status to other drugs, medicaments and biological substances

== ENCOUNTER 2018-10-04 14:25 | Emergency (ER) | payer MEDICARE, MEDICAID ==
[~2018-10-04] VITALS: Ht 177.8 cm; Wt 72.6 kg
[~2018-10-04 14:25] MED LIST changes: +CARAFATE 1 GM TA1 GM PO; +PEPCID20 MG PO
[2018-10-04 14:56] LABS: ABSOLUTE BASOPHILS 0.1 thou/uL (0.0-0.2); ABSOLUTE EOSINOPHILS 0.1 thou/uL (0.0-0.7); ABSOLUTE LYMPHOCYTES 1.8 thou/uL (0.8-5.3); ABSOLUTE MONOCYTES 0.6 thou/uL (0.0-1.2); ABSOLUTE NEUTROPHILS 4.6 thou/uL (1.6-8.1); BASOPHILS 0.8 %; EOSINOPHILS 1.3 %; HEMATOCRIT 41.4 % (42.0-52.0); HEMOGLOBIN 14.1 gm/dL (14.0-18.0); MCH 32.3 pg (26.0-34.0); MCHC 34.1 g/dL (28.0-37.0); MCV 94.7 fL (80.0-100.0); MONOCYTES 8.3 %; MPV 6.9 fl. (7.2-11.1); NUCLEATED RBCS 0 /100WBC; PLATELET COUNT* 276 thou/uL (150-400); POLYS 64.6 %; RBC 4.37 mil/uL (4.50-6.00); RDW-CV 13.6 % (10.5-14.5); WBC 7.2 thou/uL (4.0-11.0)
[2018-10-04 15:02] LABS: URINE BILIRUBIN NEGATIVE (Negative); URINE BLOOD NEGATIVE (Negative); URINE CLARITY CLEAR; URINE COLOR YELLOW; URINE GLUCOSE-RANDOM NEGATIVE (Negative); URINE KETONES NEGATIVE (Negative); URINE LEUKOCYTES-REFLEX NEGATIVE (Negative); URINE NITRITE-REFLEX NEGATIVE (Negative); URINE PROTEIN NEGATIVE (Negative); URINE SPECIFIC GRAVITY 1.025 (1.005-1.030); URINE UROBILINOGEN 0.2 E.U./dl (0.2-1.0)
[2018-10-04 15:07] LABS: CALCIUM 8.6 mg/dL (8.5-10.1); POTASSIUM 3.6 mmol/L (3.5-5.1)
[2018-10-04 15:20] LABS: ALBUMIN 3.5 g/dL (3.4-5.0); TOTAL BILIRUBIN 0.2 mg/dL (<0.1-1.0); TOTAL PROTEIN 6.9 g/dL (6.4-8.2)
[2018-10-04] MEDS ORDERED: BENTYL 20 MG TA20 M1 PO (15:42)
[2018-10-04 16:03] VITALS: BP 127/82
== END 2018-10-04 16:04 | disposition home or self-care (01) ==
LOC: M.ERS 14:25
PROVIDERS: Nurse Practitioner Family
DX: R10.32 Left lower quadrant pain (principal); E78.00 Pure hypercholesterolemia, unspecified; F20.9 Schizophrenia, unspecified; G89.29 Other chronic pain; M54.9 Dorsalgia, unspecified; M25.511 Pain in right shoulder; F17.210 Nicotine dependence, cigarettes, uncomplicated; Z88.5 Allergy status to narcotic agent; Z88.0 Allergy status to penicillin; Z88.6 Allergy status to analgesic agent; Z88.8 Allergy status to other drugs, medicaments and biological substances

== ENCOUNTER 2018-10-05 20:54 | Emergency (ER) | payer MEDICARE, MEDICAID ==
[~2018-10-05] VITALS: Ht 177.8 cm; Wt 71.2 kg
[2018-10-05 21:29] LABS: ABSOLUTE BASOPHILS 0.1 thou/uL (0.0-0.2); ABSOLUTE EOSINOPHILS 0.1 thou/uL (0.0-0.7); ABSOLUTE LYMPHOCYTES 2.3 thou/uL (0.8-5.3); ABSOLUTE MONOCYTES 0.5 thou/uL (0.0-1.2); ABSOLUTE NEUTROPHILS 3.3 thou/uL (1.6-8.1); BASOPHILS 1.3 %; EOSINOPHILS 1.7 %; HEMATOCRIT 40.6 % (42.0-52.0); LYMPHOCYTES 36.4 %; MCH 32.4 pg (26.0-34.0); MCHC 34.6 g/dL (28.0-37.0); MCV 93.7 fL (80.0-100.0); MONOCYTES 7.9 %; NUCLEATED RBCS 0 /100WBC; PLATELET COUNT* 270 thou/uL (150-400); POLYS 52.7 %; RBC 4.33 mil/uL (4.50-6.00); RDW-CV 13.2 % (10.5-14.5); WBC 6.3 thou/uL (4.0-11.0)
[2018-10-05 21:37] LABS: CALCIUM 8.7 mg/dL (8.5-10.1); CREATININE 0.7 mg/dL (0.6-1.3); POTASSIUM 3.4 mmol/L (3.5-5.1)
[2018-10-05 21:37] LABS: URINE BILIRUBIN NEGATIVE (Negative); URINE BLOOD TRACE (Negative); URINE CLARITY CLEAR; URINE COLOR YELLOW; URINE GLUCOSE-RANDOM NEGATIVE (Negative); URINE KETONES NEGATIVE (Negative); URINE LEUKOCYTES-REFLEX NEGATIVE (Negative); URINE NITRITE-REFLEX NEGATIVE (Negative); URINE PROTEIN NEGATIVE (Negative); URINE SPECIFIC GRAVITY 1.015 (1.005-1.030); URINE UROBILINOGEN 0.2 E.U./dl (0.2-1.0)
[2018-10-05 21:41] LABS: ALBUMIN 3.4 g/dL (3.4-5.0); TOTAL BILIRUBIN 0.2 mg/dL (<0.1-1.0)
[2018-10-05 22:29] VITALS: BP 111/58
== END 2018-10-05 22:29 | disposition home or self-care (01) ==
LOC: M.ERS 20:54
PROVIDERS: Physician Assistant
DX: R10.32 Left lower quadrant pain (principal); E78.00 Pure hypercholesterolemia, unspecified; F20.9 Schizophrenia, unspecified; G89.29 Other chronic pain; M54.9 Dorsalgia, unspecified; M25.511 Pain in right shoulder; F17.210 Nicotine dependence, cigarettes, uncomplicated; Z88.0 Allergy status to penicillin; Z88.6 Allergy status to analgesic agent; Z88.5 Allergy status to narcotic agent; Z88.8 Allergy status to other drugs, medicaments and biological substances

== ENCOUNTER 2018-10-08 21:40 | Emergency (ER) | payer MEDICARE, MEDICAID ==
[~2018-10-08] VITALS: Ht 177.8 cm; Wt 71.2 kg
[2018-10-08 22:48] VITALS: BP 100/72
== END 2018-10-08 22:48 | disposition home or self-care (01) ==
LOC: M.ERS 21:40
DX: M54.5 Low back pain (principal); G89.29 Other chronic pain; M19.90 Unspecified osteoarthritis, unspecified site; F20.9 Schizophrenia, unspecified; E78.00 Pure hypercholesterolemia, unspecified; M25.511 Pain in right shoulder; Z88.5 Allergy status to narcotic agent; Z88.6 Allergy status to analgesic agent; Z88.0 Allergy status to penicillin; Z88.8 Allergy status to other drugs, medicaments and biological substances

== ENCOUNTER 2018-10-12 18:42 | Emergency (ER) | payer MEDICARE, MEDICAID ==
[~2018-10-12] VITALS: Ht 177.8 cm; Wt 71.2 kg
[2018-10-12 20:18] VITALS: BP 130/89
== END 2018-10-12 20:15 | disposition home or self-care (01) ==
LOC: M.ERS 18:42
DX: S70.261A Insect bite (nonvenomous), right hip, initial encounter (principal); G89.29 Other chronic pain; F17.210 Nicotine dependence, cigarettes, uncomplicated; M54.9 Dorsalgia, unspecified; M51.36 Other intervertebral disc degeneration, lumbar region; F20.9 Schizophrenia, unspecified; E78.00 Pure hypercholesterolemia, unspecified; M25.511 Pain in right shoulder; Z88.5 Allergy status to narcotic agent; Z88.6 Allergy status to analgesic agent; Z88.0 Allergy status to penicillin; Z88.8 Allergy status to other drugs, medicaments and biological substances; W57.XXXA Bitten or stung by nonvenomous insect and other nonvenomous arthropods, initial encounter; Y92.89 Other specified places as the place of occurrence of the external cause; Y93.89 Activity, other specified; Y99.8 Other external cause status

== ENCOUNTER 2018-10-14 19:56 | Emergency (ER) | payer MEDICARE, MEDICAID ==
[~2018-10-14] VITALS: Ht 177.8 cm; Wt 71.2 kg
[2018-10-14 21:13] VITALS: BP 109/73
== END 2018-10-14 21:13 | disposition home or self-care (01) ==
LOC: M.ERS 19:56
DX: G89.29 Other chronic pain (principal); M54.9 Dorsalgia, unspecified; M25.511 Pain in right shoulder; F20.9 Schizophrenia, unspecified; E78.00 Pure hypercholesterolemia, unspecified; F17.210 Nicotine dependence, cigarettes, uncomplicated; Z88.0 Allergy status to penicillin; Z88.6 Allergy status to analgesic agent; Z88.8 Allergy status to other drugs, medicaments and biological substances

== ENCOUNTER 2018-10-22 16:43 | Emergency (ER) | payer MEDICARE, MEDICAID ==
[~2018-10-22] VITALS: Ht 177.8 cm; Wt 71.2 kg
[2018-10-22 17:11] LABS: URINE BILIRUBIN NEGATIVE (Negative); URINE BLOOD NEGATIVE (Negative); URINE CLARITY CLEAR; URINE COLOR YELLOW; URINE GLUCOSE-RANDOM NEGATIVE (Negative); URINE KETONES NEGATIVE (Negative); URINE LEUKOCYTES-REFLEX NEGATIVE (Negative); URINE NITRITE-REFLEX NEGATIVE (Negative); URINE PROTEIN NEGATIVE (Negative); URINE UROBILINOGEN 0.2 E.U./dl (0.2-1.0)
[2018-10-22 17:17] LABS: AMP/METHAMP POSITIVE (Negative); BARBITURATES Negative (Negative); BENZODIAZEPINES Negative (Negative); COCAINE Negative (Negative); METHADONE Negative (Negative); OPIATES Negative (Negative); PCP Negative (Negative); THC POSITIVE (Negative)
[2018-10-22 17:25] LABS: ABSOLUTE LYMPHOCYTES 1.4 thou/uL (0.8-5.3); ABSOLUTE MONOCYTES 0.6 thou/uL (0.0-1.2); ABSOLUTE NEUTROPHILS 5.8 thou/uL (1.6-8.1); BASOPHILS 0.4 %; EOSINOPHILS 0.5 %; HEMATOCRIT 39.4 % (42.0-52.0); HEMOGLOBIN 13.6 gm/dL (14.0-18.0); LYMPHOCYTES 17.8 %; MCH 32.3 pg (26.0-34.0); MCHC 34.6 g/dL (28.0-37.0); MCV 93.4 fL (80.0-100.0); MONOCYTES 7.8 %; MPV 7.4 fl. (7.2-11.1); NUCLEATED RBCS 0 /100WBC; PLATELET COUNT* 225 thou/uL (150-400); POLYS 73.5 %; RBC 4.22 mil/uL (4.50-6.00); WBC 7.9 thou/uL (4.0-11.0)
[2018-10-22 17:34] LABS: CREATININE 0.9 mg/dL (0.6-1.3); POTASSIUM 3.5 mmol/L (3.5-5.1)
[2018-10-22 17:39] LABS: ALBUMIN 3.6 g/dL (3.4-5.0); TOTAL BILIRUBIN 0.3 mg/dL (<0.1-1.0); TOTAL PROTEIN 7.1 g/dL (6.4-8.2)
[2018-10-22 19:26] VITALS: BP 103/70
== END 2018-10-22 19:26 | disposition home or self-care (01) ==
LOC: M.ERS 16:43
PROVIDERS: Nurse Practitioner Family
DX: F15.10 Other stimulant abuse, uncomplicated (principal); R94.5 Abnormal results of liver function studies; G89.29 Other chronic pain; M54.2 Cervicalgia; M25.511 Pain in right shoulder; M54.9 Dorsalgia, unspecified; F20.9 Schizophrenia, unspecified; E78.00 Pure hypercholesterolemia, unspecified; F17.210 Nicotine dependence, cigarettes, uncomplicated; Z88.0 Allergy status to penicillin; Z88.6 Allergy status to analgesic agent; Z88.8 Allergy status to other drugs, medicaments and biological substances; Z79.899 Other long term (current) drug therapy

== ENCOUNTER 2018-11-03 14:05 | Emergency (ER) | payer MEDICARE, MEDICAID ==
[~2018-11-03] VITALS: Ht 177.8 cm; Wt 65.8 kg
[2018-11-03] MEDS ORDERED: PEPCID40 MG PO (14:40)
[2018-11-03 14:53] VITALS: BP 134/62
== END 2018-11-03 14:54 | disposition home or self-care (01) ==
LOC: M.ERS 14:05
DX: K27.9 Peptic ulcer, site unspecified, unspecified as acute or chronic, without hemorrhage or perforation (principal); G89.29 Other chronic pain; R07.89 Other chest pain; M25.511 Pain in right shoulder; E78.00 Pure hypercholesterolemia, unspecified; M54.9 Dorsalgia, unspecified; F17.210 Nicotine dependence, cigarettes, uncomplicated; Z88.0 Allergy status to penicillin; Z88.6 Allergy status to analgesic agent; Z88.8 Allergy status to other drugs, medicaments and biological substances

== ENCOUNTER 2018-11-05 21:32 | Emergency (ER) | payer MEDICARE, MEDICAID ==
[~2018-11-05] VITALS: Ht 177.8 cm; Wt 69.8 kg
[~2018-11-05 21:32] MED LIST changes: +PEPCID40 MG PO
[2018-11-05 21:33] VITALS: BP 126/69
[2018-11-05] MEDS ORDERED: NORCO 10-325 T1 EACH (21:36)
== END 2018-11-05 22:05 | disposition home or self-care (01) ==
LOC: M.ERS 21:32
DX: G89.29 Other chronic pain (principal); M54.9 Dorsalgia, unspecified; F20.9 Schizophrenia, unspecified; E78.00 Pure hypercholesterolemia, unspecified; M25.511 Pain in right shoulder; F17.210 Nicotine dependence, cigarettes, uncomplicated; Z88.0 Allergy status to penicillin; Z88.8 Allergy status to other drugs, medicaments and biological substances

== ENCOUNTER 2018-11-08 18:20 | Emergency (ER) | payer MEDICARE, MEDICAID ==
[~2018-11-08] VITALS: Ht 177.8 cm; Wt 69.8 kg
[2018-11-08 19:13] LABS: URINE BILIRUBIN NEGATIVE (Negative); URINE BLOOD NEGATIVE (Negative); URINE CLARITY CLEAR; URINE COLOR YELLOW; URINE GLUCOSE-RANDOM NEGATIVE (Negative); URINE KETONES NEGATIVE (Negative); URINE LEUKOCYTES-REFLEX NEGATIVE (Negative); URINE NITRITE-REFLEX NEGATIVE (Negative); URINE PROTEIN NEGATIVE (Negative); URINE SPECIFIC GRAVITY <= 1.005 (1.005-1.030); URINE UROBILINOGEN 0.2 E.U./dl (0.2-1.0)
[2018-11-08] MEDS ORDERED: BENTYL 10 MG CA10 M1 PO (19:17)
[2018-11-08 19:21] LABS: AMP/METHAMP Negative (Negative); BARBITURATES Negative (Negative); BENZODIAZEPINES Negative (Negative); COCAINE Negative (Negative); METHADONE Negative (Negative); OPIATES Negative (Negative); PCP Negative (Negative); THC POSITIVE (Negative)
[2018-11-08 19:41] VITALS: BP 118/62
== END 2018-11-08 19:42 | disposition home or self-care (01) ==
LOC: M.ERS 18:20
PROVIDERS: Physician Assistant
DX: G89.29 Other chronic pain (principal); R10.2 Pelvic and perineal pain; M25.511 Pain in right shoulder; M54.9 Dorsalgia, unspecified; F20.9 Schizophrenia, unspecified; E78.00 Pure hypercholesterolemia, unspecified; F17.210 Nicotine dependence, cigarettes, uncomplicated; Z79.899 Other long term (current) drug therapy; Z88.0 Allergy status to penicillin; Z88.6 Allergy status to analgesic agent; Z88.8 Allergy status to other drugs, medicaments and biological substances

== ENCOUNTER 2018-11-18 17:54 | Emergency (ER) | payer MEDICARE, MEDICAID ==
[~2018-11-18] VITALS: Ht 177.8 cm; Wt 69.8 kg
[~2018-11-18 17:54] MED LIST changes: +BENTYL 10 MG CA10 M1 PO
[2018-11-18 18:33] VITALS: BP 137/78
== END 2018-11-18 18:33 | disposition home or self-care (01) ==
LOC: M.ERS 17:54
DX: S56.811A Strain of other muscles, fascia and tendons at forearm level, right arm, initial encounter (principal); G89.29 Other chronic pain; M54.9 Dorsalgia, unspecified; M25.511 Pain in right shoulder; F20.9 Schizophrenia, unspecified; E78.00 Pure hypercholesterolemia, unspecified; F17.210 Nicotine dependence, cigarettes, uncomplicated; Z88.0 Allergy status to penicillin; Z88.6 Allergy status to analgesic agent; Z88.8 Allergy status to other drugs, medicaments and biological substances; V89.2XXA Person injured in unspecified motor-vehicle accident, traffic, initial encounter; Y93.89 Activity, other specified; Y92.89 Other specified places as the place of occurrence of the external cause; Y99.8 Other external cause status

== ENCOUNTER 2018-11-23 21:45 | Emergency (ER) | payer MEDICARE, MEDICAID ==
[~2018-11-23] VITALS: Ht 177.8 cm; Wt 69.8 kg
[2018-11-23] MEDS ORDERED: MEDROLDOSEPACK PO (22:02)
[2018-11-23 22:14] VITALS: BP 125/74
== END 2018-11-23 22:14 | disposition home or self-care (01) ==
LOC: M.ERS 21:45
DX: S39.012A Strain of muscle, fascia and tendon of lower back, initial encounter (principal); F17.210 Nicotine dependence, cigarettes, uncomplicated; M19.90 Unspecified osteoarthritis, unspecified site; G89.29 Other chronic pain; M25.511 Pain in right shoulder; F20.9 Schizophrenia, unspecified; E78.00 Pure hypercholesterolemia, unspecified; Z88.6 Allergy status to analgesic agent; Z88.8 Allergy status to other drugs, medicaments and biological substances; Z88.0 Allergy status to penicillin; W18.49XA Other slipping, tripping and stumbling without falling, initial encounter; Y93.89 Activity, other specified; Y92.89 Other specified places as the place of occurrence of the external cause; Y99.8 Other external cause status

== ENCOUNTER 2018-11-27 16:59 | Emergency (ER) | payer MEDICARE, MEDICAID ==
[~2018-11-27] VITALS: Ht 177.8 cm; Wt 68.0 kg
[2018-11-27 17:58] VITALS: BP 120/71
== END 2018-11-27 17:59 | disposition home or self-care (01) ==
LOC: M.ERS 16:59
DX: G89.29 Other chronic pain (principal); M25.551 Pain in right hip; M25.552 Pain in left hip; M54.9 Dorsalgia, unspecified; F20.9 Schizophrenia, unspecified; E78.00 Pure hypercholesterolemia, unspecified; M25.511 Pain in right shoulder; F17.210 Nicotine dependence, cigarettes, uncomplicated; Z88.0 Allergy status to penicillin; Z88.8 Allergy status to other drugs, medicaments and biological substances

== ENCOUNTER 2018-12-02 17:16 | Emergency (ER) | payer MEDICARE, MEDICAID ==
[~2018-12-02] VITALS: Ht 177.8 cm; Wt 70.8 kg
[2018-12-02] MEDS ORDERED: NORCO 5-325 TA1 EACH PO (18:01)
[2018-12-02] MEDS ORDERED: GABAPENTIN 100100 MG PO (18:01)
[2018-12-02 18:54] VITALS: BP 138/40
== END 2018-12-02 18:55 | disposition home or self-care (01) ==
LOC: M.ERS 17:16
DX: S32.592A Other specified fracture of left pubis, initial encounter for closed fracture (principal); M54.9 Dorsalgia, unspecified; G89.29 Other chronic pain; F20.9 Schizophrenia, unspecified; M25.511 Pain in right shoulder; E78.00 Pure hypercholesterolemia, unspecified; F17.210 Nicotine dependence, cigarettes, uncomplicated; Z88.0 Allergy status to penicillin; Z88.8 Allergy status to other drugs, medicaments and biological substances; V09.9XXA Pedestrian injured in unspecified transport accident, initial encounter; Y93.89 Activity, other specified; Y92.89 Other specified places as the place of occurrence of the external cause; Y99.8 Other external cause status

== ENCOUNTER 2018-12-08 19:58 | Emergency (ER) | payer MEDICARE, MEDICAID ==
[~2018-12-08] VITALS: Ht 177.8 cm; Wt 69.8 kg
[~2018-12-08 19:58] MED LIST changes: +GABAPENTIN 100100 MG PO
[2018-12-08 22:11] VITALS: BP 128/89
== END 2018-12-08 22:11 | disposition home or self-care (01) ==
LOC: M.ERS 19:58
DX: S61.011A Laceration without foreign body of right thumb without damage to nail, initial encounter (principal); M54.2 Cervicalgia; M54.9 Dorsalgia, unspecified; G89.29 Other chronic pain; F20.9 Schizophrenia, unspecified; E78.00 Pure hypercholesterolemia, unspecified; M25.511 Pain in right shoulder; F17.210 Nicotine dependence, cigarettes, uncomplicated; Z88.0 Allergy status to penicillin; Z88.8 Allergy status to other drugs, medicaments and biological substances; W19.XXXA Unspecified fall, initial encounter; Y93.89 Activity, other specified; Y92.89 Other specified places as the place of occurrence of the external cause; Y99.8 Other external cause status

== ENCOUNTER 2018-12-13 10:58 | Emergency (ER) | payer MEDICARE, MEDICAID ==
[~2018-12-13] VITALS: Ht 177.8 cm; Wt 81.7 kg
[2018-12-13 10:59] VITALS: BP 127/79
== END 2018-12-13 11:30 | disposition home or self-care (01) ==
LOC: M.ERS 10:58
DX: M54.5 Low back pain (principal); F17.210 Nicotine dependence, cigarettes, uncomplicated; M19.90 Unspecified osteoarthritis, unspecified site; F20.9 Schizophrenia, unspecified; E78.00 Pure hypercholesterolemia, unspecified; G89.29 Other chronic pain; M25.511 Pain in right shoulder; Z88.6 Allergy status to analgesic agent; Z88.0 Allergy status to penicillin; Z88.8 Allergy status to other drugs, medicaments and biological substances

== ENCOUNTER 2018-12-15 18:49 | Emergency (ER) | payer MEDICARE, MEDICAID ==
[~2018-12-15] VITALS: Ht 177.8 cm; Wt 70.8 kg
[2018-12-15 20:42] VITALS: BP 141/93
== END 2018-12-15 20:42 | disposition home or self-care (01) ==
LOC: M.ERS 18:49
DX: M54.9 Dorsalgia, unspecified (principal); G89.29 Other chronic pain; F17.210 Nicotine dependence, cigarettes, uncomplicated; M19.90 Unspecified osteoarthritis, unspecified site; F20.9 Schizophrenia, unspecified; E78.00 Pure hypercholesterolemia, unspecified; M25.511 Pain in right shoulder; Z88.6 Allergy status to analgesic agent; Z88.0 Allergy status to penicillin; Z88.8 Allergy status to other drugs, medicaments and biological substances

== ENCOUNTER 2018-12-17 23:17 | Emergency (ER) | payer MEDICARE, MEDICAID ==
[~2018-12-17] VITALS: Ht 177.8 cm; Wt 69.8 kg
[2018-12-17 23:18] VITALS: BP 143/78
[2018-12-17] MEDS ORDERED: ZYPREXA10 MG (23:26)
[2018-12-17] MEDS ORDERED: AMITRIPTYLINE H10 M3 (23:26)
== END 2018-12-17 23:43 ==
LOC: M.ERS 23:17
DX: G89.29 Other chronic pain (principal); M54.2 Cervicalgia; F20.9 Schizophrenia, unspecified; E78.00 Pure hypercholesterolemia, unspecified; M25.511 Pain in right shoulder; F17.210 Nicotine dependence, cigarettes, uncomplicated; Z88.0 Allergy status to penicillin; Z88.8 Allergy status to other drugs, medicaments and biological substances

== ENCOUNTER 2018-12-27 13:06 | Emergency (ER) | payer MEDICARE, MEDICAID ==
[~2018-12-27] VITALS: Ht 177.8 cm; Wt 65.3 kg
[~2018-12-27 13:06] MED LIST changes: +ZYPREXA10 MG
[2018-12-27] MEDS ORDERED: AMITRIPTYLINE100 MG PO (13:29)
[2018-12-27 14:15] VITALS: BP 119/86
== END 2018-12-27 14:17 | disposition home or self-care (01) ==
LOC: M.ERS 13:06
DX: G89.29 Other chronic pain (principal); M54.5 Low back pain; M25.511 Pain in right shoulder; F20.9 Schizophrenia, unspecified; E78.00 Pure hypercholesterolemia, unspecified; F17.210 Nicotine dependence, cigarettes, uncomplicated; Z88.0 Allergy status to penicillin; Z88.6 Allergy status to analgesic agent; Z88.8 Allergy status to other drugs, medicaments and biological substances

== ENCOUNTER 2019-01-03 14:14 | Emergency (ER) | payer MEDICARE, MEDICAID ==
[~2019-01-03] VITALS: Ht 177.8 cm; Wt 71.2 kg
[~2019-01-03 14:14] MED LIST changes: +AMITRIPTYLINE100 MG PO
[2019-01-03 14:18] VITALS: BP 123/92
== END 2019-01-03 14:41 | disposition home or self-care (01) ==
LOC: M.ERS 14:14
DX: G89.29 Other chronic pain (principal); M25.561 Pain in right knee; M25.511 Pain in right shoulder; E78.00 Pure hypercholesterolemia, unspecified; F20.9 Schizophrenia, unspecified; F17.210 Nicotine dependence, cigarettes, uncomplicated; Z88.6 Allergy status to analgesic agent; Z88.0 Allergy status to penicillin; Z88.8 Allergy status to other drugs, medicaments and biological substances

== ENCOUNTER 2019-01-07 13:24 | Emergency (ER) | payer MEDICARE, MEDICAID ==
[~2019-01-07] VITALS: Ht 177.8 cm; Wt 71.2 kg
[2019-01-07 14:11] VITALS: BP 133/78
== END 2019-01-07 14:12 | disposition home or self-care (01) ==
LOC: M.ERS 13:24
DX: G89.29 Other chronic pain (principal); M25.561 Pain in right knee; R51 Headache; M54.9 Dorsalgia, unspecified; M25.511 Pain in right shoulder; F20.9 Schizophrenia, unspecified; E78.00 Pure hypercholesterolemia, unspecified; F17.210 Nicotine dependence, cigarettes, uncomplicated; Z88.6 Allergy status to analgesic agent; Z88.0 Allergy status to penicillin

== ENCOUNTER 2019-01-10 11:02 | Emergency (ER) | payer MEDICARE, MEDICAID ==
[~2019-01-10] VITALS: Ht 177.8 cm; Wt 69.4 kg
[2019-01-10 11:11] VITALS: BP 124/82
[2019-01-10] MEDS ORDERED: INVEGA SUS39 MG/0.25 IM (11:15)
[2019-01-10] MEDS ORDERED: MOBIC15 MG PO (11:27)
== END 2019-01-10 11:37 | disposition home or self-care (01) ==
LOC: M.ERS 11:02
DX: M25.561 Pain in right knee (principal); G89.29 Other chronic pain; M54.9 Dorsalgia, unspecified; F20.9 Schizophrenia, unspecified; E78.00 Pure hypercholesterolemia, unspecified; M25.511 Pain in right shoulder; F17.210 Nicotine dependence, cigarettes, uncomplicated; Z88.0 Allergy status to penicillin; Z88.6 Allergy status to analgesic agent; Z88.8 Allergy status to other drugs, medicaments and biological substances

== ENCOUNTER 2019-01-13 19:00 | Emergency (ER) | payer MEDICARE, MEDICAID ==
[~2019-01-13] VITALS: Ht 177.8 cm; Wt 69.4 kg
[~2019-01-13 19:00] MED LIST changes: +INVEGA SUS39 MG/0.25 IM
[2019-01-13 19:01] VITALS: BP 135/73
== END 2019-01-13 19:56 | disposition home or self-care (01) ==
LOC: M.ERS 19:00
DX: M25.561 Pain in right knee (principal); E78.00 Pure hypercholesterolemia, unspecified; F20.9 Schizophrenia, unspecified; G89.29 Other chronic pain; M54.9 Dorsalgia, unspecified; M25.511 Pain in right shoulder; F17.210 Nicotine dependence, cigarettes, uncomplicated; Z88.0 Allergy status to penicillin; Z88.6 Allergy status to analgesic agent; Z88.8 Allergy status to other drugs, medicaments and biological substances

== ENCOUNTER 2019-01-18 20:58 | Emergency (ER) | payer MEDICARE, MEDICAID ==
[~2019-01-18] VITALS: Ht 177.8 cm; Wt 69.8 kg
[2019-01-18 21:24] VITALS: BP 131/77
== END 2019-01-18 21:25 | disposition home or self-care (01) ==
LOC: M.ERS 20:58
DX: G89.29 Other chronic pain (principal); M25.552 Pain in left hip; M54.9 Dorsalgia, unspecified; F20.9 Schizophrenia, unspecified; E78.00 Pure hypercholesterolemia, unspecified; M25.511 Pain in right shoulder; F17.210 Nicotine dependence, cigarettes, uncomplicated; Z88.0 Allergy status to penicillin; Z88.8 Allergy status to other drugs, medicaments and biological substances

== ENCOUNTER 2019-01-20 17:23 | Emergency (ER) | payer MEDICARE, MEDICAID ==
[~2019-01-20] VITALS: Ht 177.8 cm; Wt 69.8 kg
[2019-01-20 18:03] VITALS: BP 107/70
== END 2019-01-20 18:03 | disposition home or self-care (01) ==
LOC: M.ERS 17:23
DX: M54.5 Low back pain (principal); G89.29 Other chronic pain; F17.210 Nicotine dependence, cigarettes, uncomplicated; M25.511 Pain in right shoulder; E78.00 Pure hypercholesterolemia, unspecified; M51.36 Other intervertebral disc degeneration, lumbar region; Z88.6 Allergy status to analgesic agent; Z88.0 Allergy status to penicillin; Z88.8 Allergy status to other drugs, medicaments and biological substances

== ENCOUNTER 2019-01-21 21:46 | Emergency (ER) | payer MEDICARE, MEDICAID ==
[~2019-01-21] VITALS: Ht 177.8 cm; Wt 71.2 kg
[2019-01-22 00:28] VITALS: BP 160/80
== END 2019-01-22 00:28 | disposition home or self-care (01) ==
LOC: M.ERS 21:46
DX: F22 Delusional disorders (principal); G89.29 Other chronic pain; M25.511 Pain in right shoulder; M54.9 Dorsalgia, unspecified; F20.9 Schizophrenia, unspecified; E78.00 Pure hypercholesterolemia, unspecified; F17.210 Nicotine dependence, cigarettes, uncomplicated; Z88.0 Allergy status to penicillin; Z88.6 Allergy status to analgesic agent; Z88.8 Allergy status to other drugs, medicaments and biological substances

== ENCOUNTER 2019-01-29 21:21 | Emergency (ER) | payer MEDICARE, MEDICAID ==
[~2019-01-29] VITALS: Ht 177.8 cm; Wt 69.8 kg
[2019-01-29 22:04] VITALS: BP 135/82
== END 2019-01-29 22:07 | disposition home or self-care (01) ==
LOC: M.ERS 21:21
DX: G89.29 Other chronic pain (principal); M54.2 Cervicalgia; M89.8X8 Other specified disorders of bone, other site; M25.511 Pain in right shoulder; M54.9 Dorsalgia, unspecified; F20.9 Schizophrenia, unspecified; E78.00 Pure hypercholesterolemia, unspecified; F17.210 Nicotine dependence, cigarettes, uncomplicated; Z88.0 Allergy status to penicillin; Z88.6 Allergy status to analgesic agent; Z88.8 Allergy status to other drugs, medicaments and biological substances

== ENCOUNTER 2019-02-04 22:50 | Emergency (ER) | payer MEDICARE, MEDICAID ==
[~2019-02-04] VITALS: Ht 177.8 cm; Wt 69.8 kg
[2019-02-04 23:02] VITALS: BP 129/71
[2019-02-04] MEDS ORDERED: ZYPREXA2.5 MG PO (23:06)
== END 2019-02-04 23:19 | disposition home or self-care (01) ==
LOC: M.ERS 22:50
DX: S76.011A Strain of muscle, fascia and tendon of right hip, initial encounter (principal); L74.0 Miliaria rubra; G89.29 Other chronic pain; M54.9 Dorsalgia, unspecified; M25.511 Pain in right shoulder; F20.9 Schizophrenia, unspecified; M19.90 Unspecified osteoarthritis, unspecified site; E78.00 Pure hypercholesterolemia, unspecified; F17.210 Nicotine dependence, cigarettes, uncomplicated; Z88.6 Allergy status to analgesic agent; Z88.0 Allergy status to penicillin; X58.XXXA Exposure to other specified factors, initial encounter; Y93.89 Activity, other specified; Y92.89 Other specified places as the place of occurrence of the external cause; Y99.8 Other external cause status

== ENCOUNTER 2019-02-09 17:08 | Emergency (ER) | payer MEDICARE, MEDICAID ==
[~2019-02-09] VITALS: Ht 177.8 cm; Wt 71.2 kg
[~2019-02-09 17:08] MED LIST changes: +ZYPREXA2.5 MG PO
[2019-02-09 18:44] VITALS: BP 129/69
== END 2019-02-09 18:45 | disposition home or self-care (01) ==
LOC: M.ERS 17:08
DX: R51 Headache (principal); G89.29 Other chronic pain; F17.210 Nicotine dependence, cigarettes, uncomplicated; M54.9 Dorsalgia, unspecified; M51.36 Other intervertebral disc degeneration, lumbar region; F20.9 Schizophrenia, unspecified; E78.00 Pure hypercholesterolemia, unspecified; M25.511 Pain in right shoulder; Z88.6 Allergy status to analgesic agent; Z88.0 Allergy status to penicillin; Z88.8 Allergy status to other drugs, medicaments and biological substances

== ENCOUNTER 2019-02-16 20:47 | Emergency (ER) | payer MEDICARE, MEDICAID ==
[~2019-02-16] VITALS: Ht 177.8 cm; Wt 69.0 kg
[2019-02-16 20:54] VITALS: BP 132/80
== END 2019-02-16 21:25 | disposition home or self-care (01) ==
LOC: M.ERS 20:47
DX: G89.4 Chronic pain syndrome (principal); F20.9 Schizophrenia, unspecified; E78.00 Pure hypercholesterolemia, unspecified; M25.511 Pain in right shoulder; M54.9 Dorsalgia, unspecified; F17.210 Nicotine dependence, cigarettes, uncomplicated; Z88.0 Allergy status to penicillin; Z88.8 Allergy status to other drugs, medicaments and biological substances

== ENCOUNTER 2019-02-19 18:31 | Emergency (ER) | payer MEDICARE, MEDICAID ==
[~2019-02-19] VITALS: Ht 177.8 cm; Wt 69.8 kg
[2019-02-19 18:31] VITALS: BP 143/75
== END 2019-02-19 19:23 | disposition home or self-care (01) ==
LOC: M.ERS 18:31
DX: G89.29 Other chronic pain (principal); M54.6 Pain in thoracic spine; F20.9 Schizophrenia, unspecified; E78.00 Pure hypercholesterolemia, unspecified; M25.511 Pain in right shoulder; F17.210 Nicotine dependence, cigarettes, uncomplicated; Z88.6 Allergy status to analgesic agent; Z88.0 Allergy status to penicillin; Z88.8 Allergy status to other drugs, medicaments and biological substances

== ENCOUNTER 2019-02-23 17:39 | Emergency (ER) | payer MEDICARE, MEDICAID ==
[~2019-02-23] VITALS: Ht 177.8 cm; Wt 69.8 kg
[2019-02-23 17:43] VITALS: BP 137/91
[2019-02-23] MEDS ORDERED: NORCO 5-325 TA1 EACH PO (17:45)
== END 2019-02-23 18:28 | disposition home or self-care (01) ==
LOC: M.ERS 17:39
DX: G89.4 Chronic pain syndrome (principal); M54.2 Cervicalgia; M25.511 Pain in right shoulder; M54.9 Dorsalgia, unspecified; F20.9 Schizophrenia, unspecified; E78.00 Pure hypercholesterolemia, unspecified; F17.210 Nicotine dependence, cigarettes, uncomplicated; Z88.6 Allergy status to analgesic agent; Z88.0 Allergy status to penicillin; Z88.8 Allergy status to other drugs, medicaments and biological substances

== ENCOUNTER 2019-02-25 19:33 | Emergency (ER) | payer MEDICARE, MEDICAID ==
[~2019-02-25] VITALS: Ht 182.9 cm; Wt 81.7 kg
[2019-02-25 20:29] VITALS: BP 140/75
== END 2019-02-25 20:29 | disposition home or self-care (01) ==
LOC: M.ERS 19:33
DX: R51 Headache (principal); M54.2 Cervicalgia; G89.29 Other chronic pain; F17.210 Nicotine dependence, cigarettes, uncomplicated; M54.9 Dorsalgia, unspecified; M51.36 Other intervertebral disc degeneration, lumbar region; F20.9 Schizophrenia, unspecified; E78.00 Pure hypercholesterolemia, unspecified; M25.511 Pain in right shoulder; Z88.6 Allergy status to analgesic agent; Z88.0 Allergy status to penicillin; Z88.8 Allergy status to other drugs, medicaments and biological substances

== ENCOUNTER 2019-03-02 17:13 | Emergency (ER) | payer MEDICARE, MEDICAID ==
[~2019-03-02] VITALS: Ht 180.3 cm; Wt 70.3 kg
[2019-03-02 17:17] VITALS: BP 134/87
[2019-03-02] MEDS ORDERED: ROBAXIN500 MG PO (17:35)
== END 2019-03-02 17:55 | disposition home or self-care (01) ==
LOC: M.ERS 17:13
DX: S16.1XXA Strain of muscle, fascia and tendon at neck level, initial encounter (principal); F17.210 Nicotine dependence, cigarettes, uncomplicated; M54.9 Dorsalgia, unspecified; M19.90 Unspecified osteoarthritis, unspecified site; F20.9 Schizophrenia, unspecified; E78.00 Pure hypercholesterolemia, unspecified; M25.511 Pain in right shoulder; G89.29 Other chronic pain; Z88.6 Allergy status to analgesic agent; Z88.0 Allergy status to penicillin; Z88.8 Allergy status to other drugs, medicaments and biological substances; X50.1XXA Overexertion from prolonged static or awkward postures, initial encounter; Y92.89 Other specified places as the place of occurrence of the external cause; Y93.89 Activity, other specified; Y99.8 Other external cause status

== ENCOUNTER 2019-03-03 19:29 | Emergency (ER) | payer MEDICARE, MEDICAID ==
[~2019-03-03] VITALS: Ht 182.9 cm; Wt 78.0 kg
[2019-03-03 20:55] LABS: ABSOLUTE BASOPHILS 0.1 thou/uL (0.0-0.2); ABSOLUTE EOSINOPHILS 0.1 thou/uL (0.0-0.7); ABSOLUTE LYMPHOCYTES 2.3 thou/uL (0.8-5.3); ABSOLUTE MONOCYTES 0.7 thou/uL (0.0-1.2); ABSOLUTE NEUTROPHILS 5.4 thou/uL (1.6-8.1); BASOPHILS 0.8 %; EOSINOPHILS 1.5 %; HEMATOCRIT 40.8 % (42.0-52.0); HEMOGLOBIN 13.9 gm/dL (14.0-18.0); LYMPHOCYTES 26.7 %; MCH 32.6 pg (26.0-34.0); MCHC 34.2 g/dL (28.0-37.0); MCV 95.6 fL (80.0-100.0); MONOCYTES 8.3 %; MPV 7.7 fl. (7.2-11.1); NUCLEATED RBCS 0 /100WBC; PLATELET COUNT* 258 thou/uL (150-400); POLYS 62.7 %; RBC 4.27 mil/uL (4.50-6.00); RDW-CV 13.6 % (10.5-14.5); WBC 8.6 thou/uL (4.0-11.0)
[2019-03-03 21:23] LABS: ALBUMIN 3.6 g/dL (3.4-5.0); CALCIUM 8.9 mg/dL (8.5-10.1); POTASSIUM 3.6 mmol/L (3.5-5.1); TOTAL BILIRUBIN 0.2 mg/dL (<0.1-1.0); TOTAL PROTEIN 6.9 g/dL (6.4-8.2)
[2019-03-03 22:19] LABS: AMP/METHAMP Negative (Negative); BARBITURATES Negative (Negative); BENZODIAZEPINES Negative (Negative); COCAINE Negative (Negative); METHADONE Negative (Negative); OPIATES Negative (Negative); PCP Negative (Negative); THC Negative (Negative)
[2019-03-03 22:24] VITALS: BP 133/84
--- NOTE | 2019-03-05 12:38 | EKG ---
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 03/05/19 1237 26 26 Kalyan Laboy MD, FACC /EPI
--- NOTE | 2019-03-05 12:39 | EKG ---
[place] [address] ELECTROCARDIOGRAM REPORT Name: MARCELO HUI Room: [facility]#: [id number] Admission: 03/03/19 Attend Phys: Discharge: 03/03/19 Date of : 68 Report #: [id number] THIS REPORT FOR: //name// [place] ED Test Date: 2019-03-03 Test Time: 21:16:51 Pat Name: MARCELO HUI Department: Room: Gender: M Pharmacist Aide: NATHAN : 1970 Requested By: Halle Guaman Order Number: [id number] MD: Kalyan Laboy Measurements Intervals [place] Rate: 64 P: 66 FL: 169 QRS: 69 QRSD: 130 T: 62 QT: 412 QTc: 425 Interpretive Statements Sinus rhythm Probable left atrial enlargement Right bundle branch block Compared to ECG 05/23/2016 18:15:40 Right bundle-branch block now present Electronically Signed On 03-05-2019 12:39:10 CDT by Kalyan Laboy [email or web address] <ELECTRONICALLY SIGNED> By: Kalyan Laboy MD, [facility] 03/05/19 1239 15 15 Kalyan Laboy MD, FACC /EPI
== END 2019-03-03 22:25 | disposition home or self-care (01) ==
LOC: M.ERS 19:29
PROVIDERS: Emergency Medicine
DX: G89.29 Other chronic pain (principal); R07.89 Other chest pain; M54.9 Dorsalgia, unspecified; F20.9 Schizophrenia, unspecified; E78.00 Pure hypercholesterolemia, unspecified; M25.511 Pain in right shoulder; F17.210 Nicotine dependence, cigarettes, uncomplicated; Z88.0 Allergy status to penicillin; Z88.6 Allergy status to analgesic agent; Z88.8 Allergy status to other drugs, medicaments and biological substances; Z79.899 Other long term (current) drug therapy

== ENCOUNTER 2019-03-04 19:01 | Emergency (ER) | payer MEDICARE, MEDICAID ==
[~2019-03-04] VITALS: Ht 177.8 cm; Wt 69.8 kg
[2019-03-04 19:40] VITALS: BP 118/79
== END 2019-03-04 19:52 | disposition home or self-care (01) ==
LOC: M.ERS 19:01
DX: G89.29 Other chronic pain (principal); R68.84 Jaw pain; M54.9 Dorsalgia, unspecified; M25.511 Pain in right shoulder; F20.9 Schizophrenia, unspecified; E78.00 Pure hypercholesterolemia, unspecified; F17.210 Nicotine dependence, cigarettes, uncomplicated; Z88.0 Allergy status to penicillin; Z88.6 Allergy status to analgesic agent; Z88.8 Allergy status to other drugs, medicaments and biological substances

== ENCOUNTER 2019-03-07 18:43 | Emergency (ER) | payer MEDICARE, MEDICAID ==
[~2019-03-07] VITALS: Ht 175.3 cm; Wt 77.1 kg
[2019-03-07 19:30] LABS: HEMATOCRIT 40.4 % (42.0-52.0); HEMOGLOBIN 14.1 gm/dL (14.0-18.0); MCH 32.9 pg (26.0-34.0); MCHC 34.9 g/dL (28.0-37.0); MCV 94.2 fL (80.0-100.0); MPV 7.2 fl. (7.2-11.1); RBC 4.29 mil/uL (4.50-6.00); RDW-CV 13.5 % (10.5-14.5); WBC 6.7 thou/uL (4.0-11.0)
[2019-03-07 19:37] LABS: POTASSIUM 3.6 mmol/L (3.5-5.1)
[2019-03-07 19:49] LABS: ALBUMIN 3.8 g/dL (3.4-5.0); CALCIUM 8.9 mg/dL (8.5-10.1); TOTAL BILIRUBIN 0.2 mg/dL (<0.1-1.0); TOTAL PROTEIN 7.2 g/dL (6.4-8.2)
[2019-03-07] MEDS ORDERED: BACTRIM DS TAB1 EACH PO (20:27)
[2019-03-07 20:50] VITALS: BP 120/85
== END 2019-03-07 20:50 | disposition home or self-care (01) ==
LOC: M.ERS 18:43
PROVIDERS: Emergency Medicine Emergency Medical Services
DX: M25.551 Pain in right hip (principal); F17.210 Nicotine dependence, cigarettes, uncomplicated; M54.9 Dorsalgia, unspecified; G89.29 Other chronic pain; M19.90 Unspecified osteoarthritis, unspecified site; F20.9 Schizophrenia, unspecified; E78.00 Pure hypercholesterolemia, unspecified; M25.511 Pain in right shoulder; Z88.6 Allergy status to analgesic agent; Z88.0 Allergy status to penicillin; Z88.8 Allergy status to other drugs, medicaments and biological substances

== ENCOUNTER 2019-03-09 13:34 | Emergency (ER) | payer MEDICARE, MEDICAID ==
[~2019-03-09] VITALS: Ht 177.8 cm; Wt 72.6 kg
[2019-03-09 14:06] VITALS: BP 113/78
== END 2019-03-09 14:07 | disposition home or self-care (01) ==
LOC: M.ERS 13:34
DX: M25.551 Pain in right hip (principal); G89.29 Other chronic pain; F17.210 Nicotine dependence, cigarettes, uncomplicated; M19.90 Unspecified osteoarthritis, unspecified site; F20.9 Schizophrenia, unspecified; E78.00 Pure hypercholesterolemia, unspecified; M25.511 Pain in right shoulder; Z88.6 Allergy status to analgesic agent; Z88.0 Allergy status to penicillin; Z88.8 Allergy status to other drugs, medicaments and biological substances

== ENCOUNTER 2019-03-11 11:57 | Emergency (ER) | payer MEDICARE, MEDICAID ==
[~2019-03-11] VITALS: Ht 177.8 cm; Wt 69.8 kg
[2019-03-11 12:38] VITALS: BP 132/77
== END 2019-03-11 12:38 | disposition home or self-care (01) ==
LOC: M.ERS 11:57
DX: G89.29 Other chronic pain (principal); M54.2 Cervicalgia; M25.561 Pain in right knee; F20.9 Schizophrenia, unspecified; E78.00 Pure hypercholesterolemia, unspecified; M25.511 Pain in right shoulder; F17.210 Nicotine dependence, cigarettes, uncomplicated; Z88.0 Allergy status to penicillin; Z88.8 Allergy status to other drugs, medicaments and biological substances

== ENCOUNTER 2019-03-14 21:52 | Emergency (ER) | payer MEDICARE, MEDICAID ==
[~2019-03-14] VITALS: Ht 177.8 cm; Wt 69.8 kg
[2019-03-14 21:53] VITALS: BP 111/82
== END 2019-03-14 22:33 | disposition home or self-care (01) ==
LOC: M.ERS 21:52
DX: M54.2 Cervicalgia (principal); M25.551 Pain in right hip; F17.210 Nicotine dependence, cigarettes, uncomplicated; M54.9 Dorsalgia, unspecified; G89.29 Other chronic pain; M19.90 Unspecified osteoarthritis, unspecified site; F20.9 Schizophrenia, unspecified; E78.00 Pure hypercholesterolemia, unspecified; M25.511 Pain in right shoulder; Z88.6 Allergy status to analgesic agent; Z88.0 Allergy status to penicillin; Z88.8 Allergy status to other drugs, medicaments and biological substances

== ENCOUNTER 2019-04-21 17:45 | Emergency (ER) | payer MEDICARE, MEDICAID ==
[~2019-04-21] VITALS: Ht 177.8 cm; Wt 71.2 kg
[2019-04-21 19:42] VITALS: BP 117/79
== END 2019-04-21 19:44 | disposition home or self-care (01) ==
LOC: M.ERS 17:45
DX: S86.811A Strain of other muscle(s) and tendon(s) at lower leg level, right leg, initial encounter (principal); G89.29 Other chronic pain; M25.561 Pain in right knee; M54.9 Dorsalgia, unspecified; E78.00 Pure hypercholesterolemia, unspecified; M25.511 Pain in right shoulder; Z88.0 Allergy status to penicillin; Z88.6 Allergy status to analgesic agent; Z88.8 Allergy status to other drugs, medicaments and biological substances; F17.210 Nicotine dependence, cigarettes, uncomplicated; W18.39XA Other fall on same level, initial encounter; Y93.89 Activity, other specified; Y92.89 Other specified places as the place of occurrence of the external cause; Y99.8 Other external cause status

== ENCOUNTER 2019-04-22 18:38 | Emergency (ER) | payer MEDICARE, MEDICAID ==
[~2019-04-22] VITALS: Ht 177.8 cm; Wt 71.2 kg
[2019-04-22 18:40] VITALS: BP 111/73
== END 2019-04-22 19:19 | disposition home or self-care (01) ==
LOC: M.ERS 18:38
DX: R10.31 Right lower quadrant pain (principal); G89.29 Other chronic pain; F17.210 Nicotine dependence, cigarettes, uncomplicated; M54.9 Dorsalgia, unspecified; F20.9 Schizophrenia, unspecified; E78.00 Pure hypercholesterolemia, unspecified; M25.511 Pain in right shoulder; Z88.6 Allergy status to analgesic agent; Z88.0 Allergy status to penicillin; Z88.8 Allergy status to other drugs, medicaments and biological substances

== ENCOUNTER 2019-04-28 17:06 | Emergency (ER) | payer MEDICARE, MEDICAID ==
[~2019-04-28] VITALS: Ht 177.8 cm; Wt 74.8 kg
[2019-04-28 18:14] LABS: ABSOLUTE BASOPHILS 0.1 thou/uL (0.0-0.2); ABSOLUTE EOSINOPHILS 0.1 thou/uL (0.0-0.7); ABSOLUTE MONOCYTES 0.6 thou/uL (0.0-1.2); ABSOLUTE NEUTROPHILS 3.2 thou/uL (1.6-8.1); EOSINOPHILS 2.5 %; HEMATOCRIT 40.4 % (42.0-52.0); HEMOGLOBIN 13.9 gm/dL (14.0-18.0); LYMPHOCYTES 33.1 %; MCHC 34.5 g/dL (28.0-37.0); MCV 95.7 fL (80.0-100.0); MONOCYTES 9.7 %; MPV 7.3 fl. (7.2-11.1); NUCLEATED RBCS 0 /100WBC; PLATELET COUNT* 212 thou/uL (150-400); POLYS 53.7 %; RBC 4.22 mil/uL (4.50-6.00); RDW-CV 13.2 % (10.5-14.5); WBC 5.9 thou/uL (4.0-11.0)
[2019-04-28 18:18] LABS: URINE BILIRUBIN NEGATIVE (Negative); URINE BLOOD NEGATIVE (Negative); URINE CLARITY CLEAR; URINE COLOR YELLOW; URINE GLUCOSE-RANDOM NEGATIVE (Negative); URINE KETONES NEGATIVE (Negative); URINE LEUKOCYTES-REFLEX NEGATIVE (Negative); URINE NITRITE-REFLEX NEGATIVE (Negative); URINE PROTEIN NEGATIVE (Negative); URINE SPECIFIC GRAVITY 1.015 (1.005-1.030); URINE UROBILINOGEN 0.2 E.U./dl (0.2-1.0)
[2019-04-28 18:19] LABS: CALCIUM 8.5 mg/dL (8.5-10.1); CREATININE 0.8 mg/dL (0.6-1.3); POTASSIUM 3.8 mmol/L (3.5-5.1)
[2019-04-28 18:24] LABS: ALBUMIN 3.5 g/dL (3.4-5.0); TOTAL BILIRUBIN 0.3 mg/dL (<0.1-1.0); TOTAL PROTEIN 6.6 g/dL (6.4-8.2)
[2019-04-28] MEDS ORDERED: BACTRIM DS TAB1 EACH PO (18:35)
[2019-04-28] MEDS ORDERED: MIRALAX17 GM PO (18:35)
[2019-04-28 19:33] VITALS: BP 111/81
== END 2019-04-28 19:33 | disposition home or self-care (01) ==
LOC: M.ERS 17:06
PROVIDERS: Nurse Practitioner Family
DX: L02.32 Furuncle of buttock (principal); K59.00 Constipation, unspecified; M54.9 Dorsalgia, unspecified; G89.29 Other chronic pain; F20.9 Schizophrenia, unspecified; E78.00 Pure hypercholesterolemia, unspecified; M25.511 Pain in right shoulder; F17.210 Nicotine dependence, cigarettes, uncomplicated; Z88.0 Allergy status to penicillin; Z88.8 Allergy status to other drugs, medicaments and biological substances

== ENCOUNTER 2019-04-30 10:54 | Emergency (ER) | payer MEDICARE, MEDICAID ==
[~2019-04-30] VITALS: Ht 177.8 cm; Wt 68.0 kg
[~2019-04-30 10:54] MED LIST changes: +MIRALAX17 GM PO
[2019-04-30 11:15] VITALS: BP 114/72
== END 2019-04-30 11:15 | disposition home or self-care (01) ==
LOC: M.ERS 10:54
DX: S50.862A Insect bite (nonvenomous) of left forearm, initial encounter (principal); S50.861A Insect bite (nonvenomous) of right forearm, initial encounter; W57.XXXA Bitten or stung by nonvenomous insect and other nonvenomous arthropods, initial encounter; Y93.89 Activity, other specified; Y92.89 Other specified places as the place of occurrence of the external cause; Y99.8 Other external cause status; M25.552 Pain in left hip; G89.29 Other chronic pain; M54.9 Dorsalgia, unspecified; F20.9 Schizophrenia, unspecified; E78.00 Pure hypercholesterolemia, unspecified; M25.511 Pain in right shoulder; F17.210 Nicotine dependence, cigarettes, uncomplicated; Z88.0 Allergy status to penicillin; Z88.8 Allergy status to other drugs, medicaments and biological substances

== ENCOUNTER 2019-05-07 15:40 | Emergency (ER) | payer MEDICARE, MEDICAID | END 2019-05-07 17:15 | disposition home or self-care (01) | LOC: M.ERS 15:40 | DX: G89.29 Other chronic pain (principal); M25.552 Pain in left hip; M25.551 Pain in right hip; F17.210 Nicotine dependence, cigarettes, uncomplicated; F12.10 Cannabis abuse, uncomplicated; F11.10 Opioid abuse, uncomplicated; F20.9 Schizophrenia, unspecified; E78.00 Pure hypercholesterolemia, unspecified; M54.9 Dorsalgia, unspecified; M25.511 Pain in right shoulder; Z88.0 Allergy status to penicillin; Z88.6 Allergy status to analgesic agent ==

== ENCOUNTER 2019-05-09 18:30 | Emergency (ER) | payer MEDICARE, MEDICAID ==
[~2019-05-09] VITALS: Ht 177.8 cm; Wt 69.8 kg
[2019-05-09 18:44] VITALS: BP 137/79
== END 2019-05-09 20:14 | disposition home or self-care (01) ==
LOC: M.ERS 18:30
DX: M54.5 Low back pain (principal); R21 Rash and other nonspecific skin eruption; G89.29 Other chronic pain; F20.9 Schizophrenia, unspecified; E78.00 Pure hypercholesterolemia, unspecified; M51.36 Other intervertebral disc degeneration, lumbar region; F17.210 Nicotine dependence, cigarettes, uncomplicated; Z79.899 Other long term (current) drug therapy; Z88.0 Allergy status to penicillin; Z88.5 Allergy status to narcotic agent

== ENCOUNTER 2019-05-13 12:38 | Emergency (ER) | payer MEDICARE, MEDICAID ==
[~2019-05-13] VITALS: Ht 177.8 cm; Wt 69.8 kg
[2019-05-13 14:17] VITALS: BP 134/83
== END 2019-05-13 14:19 | disposition home or self-care (01) ==
LOC: M.ERS 12:38
DX: M25.561 Pain in right knee (principal); M25.511 Pain in right shoulder; E78.00 Pure hypercholesterolemia, unspecified; M54.9 Dorsalgia, unspecified; G89.29 Other chronic pain; F17.210 Nicotine dependence, cigarettes, uncomplicated; Z88.0 Allergy status to penicillin; Z88.5 Allergy status to narcotic agent; Z88.8 Allergy status to other drugs, medicaments and biological substances; Z88.6 Allergy status to analgesic agent

== ENCOUNTER 2019-05-16 19:40 | Emergency (ER) | payer MEDICARE, MEDICAID ==
[~2019-05-16] VITALS: Ht 177.8 cm; Wt 71.2 kg
[2019-05-16 20:12] VITALS: BP 106/66
== END 2019-05-16 20:12 | disposition home or self-care (01) ==
LOC: M.ERS 19:40
DX: S46.811A Strain of other muscles, fascia and tendons at shoulder and upper arm level, right arm, initial encounter (principal); S86.911A Strain of unspecified muscle(s) and tendon(s) at lower leg level, right leg, initial encounter; M54.9 Dorsalgia, unspecified; M25.511 Pain in right shoulder; G89.29 Other chronic pain; M51.35 Other intervertebral disc degeneration, thoracolumbar region; F20.9 Schizophrenia, unspecified; E78.00 Pure hypercholesterolemia, unspecified; Z88.0 Allergy status to penicillin; Z88.5 Allergy status to narcotic agent; Z88.8 Allergy status to other drugs, medicaments and biological substances; Z88.6 Allergy status to analgesic agent; F17.210 Nicotine dependence, cigarettes, uncomplicated; W18.39XA Other fall on same level, initial encounter; Y93.89 Activity, other specified; Y92.89 Other specified places as the place of occurrence of the external cause; Y99.8 Other external cause status

== ENCOUNTER 2019-05-20 12:41 | Emergency (ER) | payer MEDICARE, MEDICAID ==
[~2019-05-20] VITALS: Ht 205.7 cm; Wt 71.2 kg
[2019-05-20 14:27] VITALS: BP 148/71
== END 2019-05-20 14:27 | disposition home or self-care (01) ==
LOC: M.ERS 12:41
DX: M25.561 Pain in right knee (principal); M54.9 Dorsalgia, unspecified; G89.29 Other chronic pain; M51.36 Other intervertebral disc degeneration, lumbar region; F20.9 Schizophrenia, unspecified; E78.00 Pure hypercholesterolemia, unspecified; M25.519 Pain in unspecified shoulder; M25.511 Pain in right shoulder; F17.210 Nicotine dependence, cigarettes, uncomplicated; Z88.0 Allergy status to penicillin; Z88.6 Allergy status to analgesic agent

== ENCOUNTER 2019-05-22 13:56 | Emergency (ER) | payer MEDICARE, MEDICAID ==
[~2019-05-22] VITALS: Ht 177.8 cm; Wt 69.8 kg
[2019-05-22 13:59] VITALS: BP 101/66
== END 2019-05-22 14:18 | disposition home or self-care (01) ==
LOC: M.ERS 13:56
DX: G89.29 Other chronic pain (principal); M25.561 Pain in right knee; M25.511 Pain in right shoulder; F20.9 Schizophrenia, unspecified; E78.00 Pure hypercholesterolemia, unspecified; F17.210 Nicotine dependence, cigarettes, uncomplicated; Z88.0 Allergy status to penicillin; Z88.6 Allergy status to analgesic agent; Z88.8 Allergy status to other drugs, medicaments and biological substances

== ENCOUNTER 2019-05-27 14:20 | Emergency (ER) | payer MEDICARE, MEDICAID ==
[~2019-05-27] VITALS: Ht 170.2 cm; Wt 65.8 kg
[2019-05-27 14:42] VITALS: BP 124/61
== END 2019-05-27 14:43 | disposition home or self-care (01) ==
LOC: M.ERS 14:20
DX: G89.29 Other chronic pain (principal); M25.511 Pain in right shoulder; M54.9 Dorsalgia, unspecified; E78.00 Pure hypercholesterolemia, unspecified; F20.9 Schizophrenia, unspecified; M51.9 Unspecified thoracic, thoracolumbar and lumbosacral intervertebral disc disorder; F17.210 Nicotine dependence, cigarettes, uncomplicated; Z88.0 Allergy status to penicillin; Z88.6 Allergy status to analgesic agent

== ENCOUNTER 2019-05-30 14:55 | Emergency (ER) | payer MEDICARE, MEDICAID ==
[~2019-05-30] VITALS: Ht 177.8 cm; Wt 69.8 kg
[2019-05-30 15:19] VITALS: BP 134/77
== END 2019-05-30 15:19 | disposition home or self-care (01) ==
LOC: M.ERS 14:55
DX: L03.115 Cellulitis of right lower limb (principal); G89.29 Other chronic pain; F20.9 Schizophrenia, unspecified; E78.00 Pure hypercholesterolemia, unspecified; M25.511 Pain in right shoulder; F17.210 Nicotine dependence, cigarettes, uncomplicated; Z88.0 Allergy status to penicillin; Z88.6 Allergy status to analgesic agent; Z88.8 Allergy status to other drugs, medicaments and biological substances

== ENCOUNTER 2021-10-24 01:04 | Emergency (ER) | payer MEDICARE, MEDICAID ==
[~2021-10-24] VITALS: Ht 182.9 cm; Wt 74.8 kg
[2021-10-24] MEDS ORDERED: NORCO7.5 PO (01:14)
[2021-10-24] MEDS ORDERED: BACLOFEN 10MG T10 MG PO (01:16)
[2021-10-24 02:08] VITALS: BP 140/82
== END 2021-10-24 02:08 | disposition home or self-care (01) ==
LOC: M.ERS 01:04
DX: G89.29 Other chronic pain (principal); M54.2 Cervicalgia; M54.9 Dorsalgia, unspecified; F20.9 Schizophrenia, unspecified; E78.00 Pure hypercholesterolemia, unspecified; F17.210 Nicotine dependence, cigarettes, uncomplicated; Z79.899 Other long term (current) drug therapy; Z88.0 Allergy status to penicillin; Z88.8 Allergy status to other drugs, medicaments and biological substances

== ENCOUNTER 2021-10-30 22:53 | Emergency (ER) | payer MEDICARE, MEDICAID ==
[~2021-10-30 22:53] MED LIST changes: +BACLOFEN 10MG T10 MG PO; +NORCO7.5 PO
[2021-10-31 01:08] VITALS: BP 0/0
== END 2021-10-31 01:10 | disposition left against medical advice (07) ==
LOC: M.ERS 22:53
DX: M54.50 Low back pain, unspecified (principal); M79.606 Pain in leg, unspecified; Z53.21 Procedure and treatment not carried out due to patient leaving prior to being seen by health care provider

== ENCOUNTER 2021-11-02 00:14 | Emergency (ER) | payer MEDICARE, MEDICAID ==
[~2021-11-02] VITALS: Ht 177.8 cm; Wt 74.8 kg
[2021-11-02 01:20] VITALS: BP 129/69
== END 2021-11-02 01:20 | disposition home or self-care (01) ==
LOC: M.ERS 00:14
DX: G89.29 Other chronic pain (principal); M25.561 Pain in right knee; F20.9 Schizophrenia, unspecified; E78.00 Pure hypercholesterolemia, unspecified; F17.210 Nicotine dependence, cigarettes, uncomplicated; Z79.899 Other long term (current) drug therapy; Z88.0 Allergy status to penicillin; Z88.5 Allergy status to narcotic agent